=== PATIENT | male | born 1965 | race Caucasian/White ===

== ENCOUNTER 2021-03-31 15:42 | Outpatient (CLI) | payer OTHER, SELFPAY ==
[2021-03-31 20:31] LABS: Basophils Absolute Auto 0.2 K/mm3 (0.0-0.1); Basophils Percent Auto 1.5 % (0.2-1.2); Eosinophils Absolute Auto 1.6 K/mm3 (0-0.3); Eosinophils Percent Auto 14.5 % (0-4.4); Hematocrit 46.4 % (42.0-52.0); Immature Granulocyte Absolute 0.05 K/mm3 (0.00-0.031); Immature Granulocyte Percent A 0.4 % (0-0.5); Lymphocytes Absolute Auto 2.05 K/mm3 (0.9-3.2); Lymphocytes Percent Auto 18.2 % (18.3-44.2); Mean Corpuscular HGB Conc 34.5 g/dl (32-36); Mean Corpuscular Hemoglobin 35.2 pg (26-34); Mean Platelet Volume 10.1 fl (7.4-10.4); Monocytes Absolute Auto 1.2 K/mm3 (0.1-0.6); Neutrophils Absolute Auto 6.1 K/mm3 (1.3-6.7); Neutrophils Percent Auto 54.4 % (45.5-73.1); Platelet Count Result 414 k/mm3 (150-375); Red Blood Count 4.55 M/mm3 (4.6-6.20); Red Cell Distribution Width 12.5 % (11.5-14.5); White Blood Count 11.3 K/mm3 (4.5-10.0)
[2021-03-31 20:38] LABS: Alanine Aminotransferase 18 U/L (4-50); Albumin Level 4.4 g/dL (3.5-5.1); Alkaline Phosphatase 55 U/L (38-126); Anion Gap 8 mmol/L (8-16); Aspartate Amino Transferase 27 U/L (17-59); Bilirubin,Total 0.6 mg/dL (0.2-1.3); Blood Urea Nitrogen 18 mg/dL (9-20); Calcium 10.1 mg/dL (8.4-10.2); Carbon Dioxide 27 mmol/L (22-30); Chloride 101 mmol/L (98-107); Cholesterol 193 mg/dL (0-200); Estimated Glomerular Filt Rate > 60; Glucose 112 mg/dL (65-110); HDL Direct 89 mg/dL; Magnesium 1.7 mg/dL (1.6-2.3); Sodium 136 mmol/L (137-145); Triglycerides 172 mg/dL (<150)
[2021-03-31 20:49] LABS: LDL Cholesterol Direct 101 mg/dL
[2021-03-31 20:58] LABS: Vitamin D 25 Hydroxy 56.8 ng/mL
[2021-03-31 21:06] LABS: Prostate Specific Antigen 0.8 ng/mL (< OR = 4.0)
== END 2021-03-31 15:43 | disposition home or self-care (01) ==
PROVIDERS: PCP Family Medicine; Visit Provider Family Medicine
DX: Z12.5 Encounter for screening for malignant neoplasm of prostate (principal); L98.9 Disorder of the skin and subcutaneous tissue, unspecified; M54.2 Cervicalgia; Z00.00 Encounter for general adult medical examination without abnormal findings; G43.909 Migraine, unspecified, not intractable, without status migrainosus
CPT/HCPCS: 36415; 80053; 80061; 82306; 83735; 84153; 85025; G0103

== ENCOUNTER 2021-04-19 14:59 | Outpatient (CLI) | payer OTHER, SELFPAY ==
[2021-04-19 20:49] LABS: Hemoglobin A1C 5.1 % (<5.7)
== END 2021-04-19 15:00 | disposition home or self-care (01) ==
LOC: ANHBWCLAB 15:01
PROVIDERS: PCP Family Medicine; Visit Provider Family Medicine
DX: R73.09 Other abnormal glucose (principal)
CPT/HCPCS: 36415; 83036

== ENCOUNTER 2021-06-29 10:45 | Outpatient (CLI) | payer OTHER, SELFPAY ==
[2021-06-29 17:54] LABS: Basophils Percent Auto 0.1 % (0.2-1.2); Eosinophils Absolute Auto 0.6 K/mm3 (0-0.3); Eosinophils Percent Auto 5.8 % (0-4.4); Hematocrit 37.4 % (42.0-52.0); Hemoglobin 12.7 g/dL (14.0-18.0); Immature Granulocyte Absolute 0.13 K/mm3 (0.00-0.031); Immature Granulocyte Percent A 1.3 % (0-0.5); Lymphocytes Percent Auto 20.7 % (18.3-44.2); Mean Corpuscular Hemoglobin 34.7 pg (26-34); Mean Corpuscular Volume 102.2 fl (80-100); Mean Platelet Volume 9.7 fl (7.4-10.4); Monocytes Absolute Auto 1.3 K/mm3 (0.1-0.6); Monocytes Percent Auto 13.3 % (2.6-8.5); Neutrophils Absolute Auto 5.7 K/mm3 (1.3-6.7); Neutrophils Percent Auto 58.8 % (45.5-73.1); Platelet Count Result 444 k/mm3 (150-375); Red Blood Count 3.66 M/mm3 (4.6-6.20); Red Cell Distribution Width 12.3 % (11.5-14.5); White Blood Count 9.7 K/mm3 (4.5-10.0)
[2021-06-29 17:57] LABS: Add Urine Microscopic? YES; Appearance Urine Clear (Clear); Bilirubin Urine Negative (Negative); Blood Urine Negative (Negative); Color Urine Straw (Yellow); Glucose Urine UA Negative (Negative); Ketones Urine Negative (Negative); Leukocyte Esterase Ur Negative LEU/UL (NEGATIVE); Nitrate Urine Negative (Negative); Protein Urine Negative (Negative); RBC Urine 0-2 /hpf (0-2); Specific Grav Ur 1.006 (1.001-1.035); Urobilinogen Urine Negative mg/dL (<2.0); WBC Urine 0-3 /hpf (0-3)
== END 2021-06-29 10:46 | disposition home or self-care (01) ==
PROVIDERS: PCP Family Medicine; Visit Provider Family Medicine
DX: N30.90 Cystitis, unspecified without hematuria (principal)
CPT/HCPCS: 36415; 81001; 85025; 87086; 87491; 87591

== ENCOUNTER 2021-09-06 11:42 | Outpatient (CLI) | payer OTHER, SELFPAY ==
[2021-09-06 19:29] LABS: Add Urine Microscopic? NO; Appearance Urine Clear (Clear); Bilirubin Urine Negative (Negative); Blood Urine Negative (Negative); Color Urine Straw (Yellow); Glucose Urine UA Negative (Negative); Ketones Urine Negative (Negative); Leukocyte Esterase Ur Negative LEU/UL (NEGATIVE); Nitrate Urine Negative (Negative); Protein Urine Negative (Negative); Specific Grav Ur 1.006 (1.001-1.035); Urobilinogen Urine Negative mg/dL (<2.0)
[2021-09-06 19:33] LABS: Basophils Absolute Auto 0.1 K/mm3 (0.0-0.1); Basophils Percent Auto 1.5 % (0.2-1.2); Eosinophils Absolute Auto 0.3 K/mm3 (0-0.3); Eosinophils Percent Auto 4.1 % (0-4.4); Hematocrit 41.2 % (42.0-52.0); Hemoglobin 13.9 g/dL (14.0-18.0); Immature Granulocyte Absolute 0.01 K/mm3 (0.00-0.031); Immature Granulocyte Percent A 0.1 % (0-0.5); Lymphocytes Absolute Auto 2.03 K/mm3 (0.9-3.2); Lymphocytes Percent Auto 27.5 % (18.3-44.2); Mean Corpuscular HGB Conc 33.7 g/dl (32-36); Mean Corpuscular Hemoglobin 34.9 pg (26-34); Mean Corpuscular Volume 103.5 fl (80-100); Mean Platelet Volume 9.8 fl (7.4-10.4); Monocytes Absolute Auto 0.7 K/mm3 (0.1-0.6); Monocytes Percent Auto 8.9 % (2.6-8.5); Neutrophils Absolute Auto 4.3 K/mm3 (1.3-6.7); Neutrophils Percent Auto 57.9 % (45.5-73.1); Platelet Count Result 378 k/mm3 (150-375); Red Blood Count 3.98 M/mm3 (4.6-6.20); Red Cell Distribution Width 12.5 % (11.5-14.5); White Blood Count 7.4 K/mm3 (4.5-10.0)
[2021-09-06 20:47] LABS: Folic Acid > 20.0 ng/mL (2.76->20)
[2021-09-07 08:25] LABS: Rapid Plasma Reagin Non-Reactive (NonReactive)
== END 2021-09-06 11:43 | disposition home or self-care (01) ==
PROVIDERS: PCP Family Medicine; Visit Provider Family Medicine
DX: D64.9 Anemia, unspecified (principal); R39.9 Unspecified symptoms and signs involving the genitourinary system; R10.30 Lower abdominal pain, unspecified
CPT/HCPCS: 36415; 81003; 82607; 82746; 85025; 86592; 87086; 87491; 87591

== ENCOUNTER 2021-11-02 14:08 | Outpatient (CLI) | payer OTHER, SELFPAY ==
--- NOTE | ~2021-11-02 | CT_ITS ---
EXAMINATION: CT abdomen pelvis wo con DATE: 11/02/2021 14:32 INDICATION: Pelvic and perineal pain TECHNIQUE: Computed tomography (CT) of the abdomen and pelvis was performed without intravenous contr ast. The dose-length product (DLP) was 192.69 mGy-cm. Automated exposure control and iterative recons truction technique were employed. COMPARISON: None FINDINGS: The lung bases are clear. The heart size is normal. The liver, spleen, pancreas, gallbladde r, and adrenal glands are normal. There is a 2 mm nonobstructing stone of the left kidney upper pole. The right kidney is unremarkable. There is calcified atherosclerosis of the aorta and many of the ot her arteries. No pathologically enlarged abdominal or pelvic lymph nodes are identified. Colonic dive rticulosis is present without evidence of diverticulitis. There is no free intraperitoneal gas or sara dence of bowel obstruction. There is mild lumbar spondylosis at L5-S1. Calcifications are noted in th e prostate. IMPRESSION: 1. No CT correlate for the patient's symptoms. 2. Diverticulosis without evidence of diverticulitis. Reviewed, dictated and finalized at location A.
== END 2021-11-02 14:09 | disposition home or self-care (01) ==
PROVIDERS: PCP Family Medicine; Visit Provider Family Medicine
DX: R10.2 Pelvic and perineal pain (principal); R19.00 Intra-abdominal and pelvic swelling, mass and lump, unspecified site; R10.30 Lower abdominal pain, unspecified; K52.9 Noninfective gastroenteritis and colitis, unspecified; R22.9 Localized swelling, mass and lump, unspecified; I70.0 Atherosclerosis of aorta; N20.0 Calculus of kidney; K57.30 Diverticulosis of large intestine without perforation or abscess without bleeding; M47.817 Spondylosis without myelopathy or radiculopathy, lumbosacral region
CPT/HCPCS: 74176

== ENCOUNTER 2022-03-30 15:28 | Outpatient (CLI) | payer OTHER, SELFPAY ==
[2022-03-30 19:50] LABS: Hematocrit 38.9 % (42.0-52.0); Hemoglobin 13.2 g/dL (14.0-18.0); Mean Corpuscular HGB Conc 33.9 g/dl (32-36); Mean Corpuscular Hemoglobin 35.5 pg (26-34); Mean Corpuscular Volume 104.6 fl (80-100); Mean Platelet Volume 9.8 fl (7.4-10.4); Platelet Count Result 391 k/mm3 (150-375); Red Blood Count 3.72 M/mm3 (4.6-6.20); Red Cell Distribution Width 12.3 % (11.5-14.5); White Blood Count 7.5 K/mm3 (4.5-10.0)
[2022-03-30 20:31] LABS: Alanine Aminotransferase 21 U/L (6-50); Albumin Level 4.7 g/dL (3.5-5.1); Alkaline Phosphatase 56 U/L (38-126); Anion Gap 8 mmol/L (8-16); Aspartate Amino Transferase 55 U/L (17-59); Bilirubin,Total 0.5 mg/dL (0.2-1.3); Blood Urea Nitrogen 12 mg/dL (9-20); Calcium 9.8 mg/dL (8.4-10.2); Carbon Dioxide 29 mmol/L (22-30); Chloride 100 mmol/L (98-107); Estimated Glomerular Filt Rate > 60; Glucose 95 mg/dL (65-110); Potassium 4.3 mmol/L (3.4-5.0); Sodium 137 mmol/L (137-145)
[2022-03-30 20:49] LABS: Prostate Specific Antigen 0.8 ng/mL (< OR = 4.0)
== END 2022-03-30 15:29 | disposition home or self-care (01) ==
LOC: ANHBWCLAB 15:29
PROVIDERS: PCP Family Medicine; Visit Provider Family Medicine
DX: Z00.00 Encounter for general adult medical examination without abnormal findings (principal); Z12.5 Encounter for screening for malignant neoplasm of prostate
CPT/HCPCS: 36415; 80053; 84153; 85027; G0103

== ENCOUNTER 2022-11-01 09:02 | Outpatient (CLI) | payer OTHER, SELFPAY ==
[2022-11-01 18:28] LABS: Basophils Absolute Auto 0.1 K/mm3 (0.0-0.1); Basophils Percent Auto 1.2 % (0.2-1.2); Eosinophils Absolute Auto 0.6 K/mm3 (0-0.3); Eosinophils Percent Auto 6.6 % (0-4.4); Hematocrit 37.7 % (42.0-52.0); Hemoglobin 12.5 g/dL (14.0-18.0); Immature Granulocyte Absolute 0.03 K/mm3 (0.00-0.031); Immature Granulocyte Percent A 0.3 % (0-0.5); Lymphocytes Absolute Auto 1.72 K/mm3 (0.9-3.2); Lymphocytes Percent Auto 19.2 % (18.3-44.2); Mean Corpuscular HGB Conc 33.2 g/dl (32-36); Mean Corpuscular Hemoglobin 34.5 pg (26-34); Mean Corpuscular Volume 104.1 fl (80-100); Mean Platelet Volume 10.5 fl (7.4-10.4); Monocytes Percent Auto 10.6 % (2.6-8.5); Neutrophils Absolute Auto 5.6 K/mm3 (1.3-6.7); Neutrophils Percent Auto 62.1 % (45.5-73.1); Platelet Count Result 337 k/mm3 (150-375); Red Blood Count 3.62 M/mm3 (4.6-6.20); Red Cell Distribution Width 12.3 % (11.5-14.5)
[2022-11-01 19:34] LABS: Iron 85 ug/dL (49-181)
[2022-11-01 19:44] LABS: Percent Iron Saturation 27 % (20-50)
[2022-11-01 20:12] LABS: Alanine Aminotransferase 26 U/L (6-50); Albumin Level 4.3 g/dL (3.5-5.1); Alkaline Phosphatase 68 U/L (38-126); Anion Gap 3 mmol/L (8-16); Aspartate Amino Transferase 76 U/L (17-59); Bilirubin,Total 0.6 mg/dL (0.2-1.3); Blood Urea Nitrogen 11 mg/dL (9-20); Calcium 9.5 mg/dL (8.4-10.2); Carbon Dioxide 32 mmol/L (22-30); Chloride 101 mmol/L (98-107); Estimated Glomerular Filt Rate > 60; Glucose 90 mg/dL (65-110); Sodium 136 mmol/L (137-145)
== END 2022-11-01 09:03 | disposition home or self-care (01) ==
LOC: ANHBWCLAB 09:03
PROVIDERS: PCP Family Medicine; Visit Provider Family Medicine
DX: D64.9 Anemia, unspecified (principal); G43.909 Migraine, unspecified, not intractable, without status migrainosus; M05.20 Rheumatoid vasculitis with rheumatoid arthritis of unspecified site; M54.2 Cervicalgia; M54.6 Pain in thoracic spine; R10.30 Lower abdominal pain, unspecified; R19.00 Intra-abdominal and pelvic swelling, mass and lump, unspecified site
CPT/HCPCS: 36415; 80053; 82728; 83540; 83550; 85025

== ENCOUNTER 2023-11-06 11:47 | Outpatient (CLI) | payer OTHER, SELFPAY ==
[2023-11-06 20:06] LABS: Anion Gap 4 mmol/L (4-12); Blood Urea Nitrogen 7 mg/dL (9-20); Carbon Dioxide 28 mmol/L (22-30); Chloride 101 mmol/L (98-107); Estimated Glomerular Filt Rate > 60; Glucose 103 mg/dL (65-110); Sodium 133 mmol/L (137-145)
== END 2023-11-06 11:48 | disposition home or self-care (01) ==
PROVIDERS: PCP Family Medicine; Visit Provider Family Medicine
DX: E87.6 Hypokalemia (principal)
CPT/HCPCS: 36415; 80048

== ENCOUNTER 2024-02-21 09:16 | Outpatient (CLI) | payer OTHER, SELFPAY ==
[2024-02-21 19:22] LABS: Hematocrit 44.6 % (42.0-52.0); Hemoglobin 14.4 g/dL (14.0-18.0); Mean Corpuscular HGB Conc 32.3 g/dl (32-36); Mean Corpuscular Hemoglobin 33.6 pg (26-34); Mean Platelet Volume 9.8 fl (7.4-10.4); Platelet Count Result 468 k/mm3 (150-375); Red Blood Count 4.29 M/mm3 (4.6-6.20); Red Cell Distribution Width 13.2 % (11.5-14.5); White Blood Count 11.7 K/mm3 (4.5-10.0)
[2024-02-21 19:44] LABS: Alanine Aminotransferase 18 U/L (6-50); Albumin Level 4.1 g/dL (3.5-5.1); Alkaline Phosphatase 54 U/L (38-126); Anion Gap 13 mmol/L (4-12); Aspartate Amino Transferase 90 U/L (17-59); Bilirubin,Total 0.3 mg/dL (0.2-1.3); Blood Urea Nitrogen 5 mg/dL (9-20); Calcium 9.5 mg/dL (8.4-10.2); Carbon Dioxide 24 mmol/L (22-30); Chloride 95 mmol/L (98-107); Estimated Glomerular Filt Rate > 60; Glucose 179 mg/dL (65-110); Sodium 132 mmol/L (137-145)
[2024-02-21 20:15] LABS: Prostate Specific Antigen 0.6 ng/mL (< OR = 4.0)
[2024-03-03 14:48] LABS: Pancreatic Elastase, Stool >500 mcg/g
== END 2024-02-21 09:17 | disposition home or self-care (01) ==
PROVIDERS: PCP Family Medicine; Visit Provider Family Medicine
DX: R19.7 Diarrhea, unspecified (principal); K50.90 Crohn's disease, unspecified, without complications; M54.2 Cervicalgia; M54.6 Pain in thoracic spine
CPT/HCPCS: 36415; 80053; 82653; 84153; 85027; 87045; 87427; 87449; 87493; 89055; G0103

== ENCOUNTER 2024-02-26 12:59 | Outpatient (CLI) | payer OTHER, SELFPAY | END 2024-02-26 13:00 | disposition home or self-care (01) | LOC: ANHBWCLAB 13:00 | PROVIDERS: PCP Family Medicine; Visit Provider Family Medicine | DX: R73.9 Hyperglycemia, unspecified (principal) | CPT/HCPCS: 36415; 83036 ==

== ENCOUNTER 2024-03-10 14:10 | Outpatient (CLI) | payer OTHER, SELFPAY ==
[2024-03-10 18:52] LABS: Add Urine Microscopic? NO; Appearance Urine Clear (Clear); Bilirubin Urine Negative (Negative); Blood Urine Negative (Negative); Color Urine Yellow (Yellow); Glucose Urine UA Negative (Negative); Ketones Urine Negative (Negative); Leukocyte Esterase Ur Negative LEU/UL (Negative); Nitrate Urine Negative (Negative); Protein Urine Negative (Negative); Specific Grav Ur 1.012 (1.001-1.035); Urobilinogen Urine 0.2 mg/dL (<2.0); pH Urine 6.5 (5.0-9.0)
== END 2024-03-10 14:11 | disposition home or self-care (01) ==
LOC: ANHBWCLAB 14:11
PROVIDERS: PCP Family Medicine; Visit Provider Family Medicine
DX: R30.0 Dysuria (principal)
CPT/HCPCS: 81003; 87086; 87088

== ENCOUNTER 2024-09-18 14:44 | Outpatient (CLI) | payer OTHER, SELFPAY ==
--- OUTSIDE RECORDS SUMMARY | 2024-09-18 15:12 | XMS_ITS | Continuity of Care Document ---
Author Organization [facility] Address [address] [facility] [address] [place] [address] Phone Care Team Providers Care Loan Documentation Specialist Name Role Phone Rafael Jacome Unavailable Unavailable [...] Copied on Encounter Office/outpati ent Visit, Est [facility], [address] [place] [address] [address], [place], [place], [address], [place] tel:[phone] [address] [facility] No Information 0-200 9 Naa Rafael. [address] [facility] [address], [place], [address], [place]. tel:[phone] Referring Provider: Alison Pittman, [address] [facility] Eye [facility], [place], [address]. [facility], [address] [place] [address] [address], [place], [place], [address], [place] tel:[phone] [facility] No Information 4-200 9 Kryimi Rafael. [address] [place] [address], [facility], [place]. tel:[phone] Referring Provider: Rafael Dianamanoj , [address] [place] [address], [place], [place], [facility]. tel:[phone] Office/outpati ent Visit, [facility] Eye [facility], [address] [place] [address] [address], [place], [place], [address], [place] tel:[phone] [facility] No Information 1-200 8 Krkaynasmanoj Calerohil. [address] [place] [address], [facility], [place]. tel:[phone] Referring Provider: Hemal DiazB N [address] [place] [address], [place], [address]. [facility] Eye [facility], [address] [place] [address] [address], [place], [place], [address], [place] tel:[phone] [facility] No Information October-0 8-200 8 Naa Calerohil. [address] [place] [address], [facility], [place]. tel:[phone] Referring Provider: Marshall Morris, [address] [facility], [place], [address]. tel:[phone] Office/outpati ent Visit, [facility] Eye [facility], [address] [place] [address] [address], [place], [place], [address], [place] tel:[phone] [facility] No Information Apr-0 2-200 7 Mio Olivares. [address] [facility], [facility] [place], [address], [place]. tel:[phone] Referring Provider: Alison Pittman [address] [place] [address] Eye [facility], [place], [address]. Office/outpati ent Visit, Est [facility], [address], [place], [place], [address], [place] tel:-[phone] [facility] No Information 0 1-200 7 Mio Olivares. [address] [facility], [address], [place], [place], [address], [place]. tel:[phone] Referring Provider: Alison Pittman, [address] [place] [address] Eye [facility], [place], [address]. [facility], [address], [place], [place], [address], [place] tel:-[phone] [facility] No Information 0 -200 7 Robbi Cordoba. [address] [place], [place] [address]ate [address] , [address], [place], [place], [facility], [place]. tel:[phone] Referring Provider: Adalid Morris, [facility] [address], [place], [facility]. tel:[phone] [facility], [address], [place], [place], [address], [place] tel:[phone] [facility] No Information 1 2-200 7 Robbi Cordoba. [facility] , [address], [place], [address], [place]. tel:[phone] Referring Provider: Adalid Morris, [facility] [address], [place], [address]. tel:[phone] Office Consultation [facility], [address], [place], [place], [address], [place] tel:[phone] [facility] No Information 1-200 7 Robbi Cordoba. [facility] , [address], [place], [address], [place]. tel:[phone] Referring Provider: Alison Pittman, [address] [place] [address] [place], [address]. 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
--- OUTSIDE RECORDS SUMMARY | 2024-09-18 15:12 | XMS_ITS | Encounter Summary ---
Author Organization [facility] Address [address] [place] [address] Phone Care Team Providers Care Accounting Machine Servicer Name Role Phone Phan Gilmore MD Primary Care Provider Elijah Humphrey MD Primary Care Provider Karan Quezada MD Unavailable Mariajose Gandhi MD Unavailable [phone] Jose Cantrell MD Unavailable [phone] Reason for Visit * Reason Comments Medication Refill Encounter Details Date Type Department Care Team (Late st Contact Info) Description 10/04/2020 Refill [facility] [address] [place] [address] Phan Gilmore MD [address] [address] Medication Refill Social History Tobacco Use Types Packs/Day Years Used Date Smoking Tobacco: Never Assessed PHQ-2 Answer Date Recorded Total Score - Questions 1-9 0 04/0 03/2021 Sex and Gender Information Value Date Recorded Sex Assigned at Not on file Legal Sex Male 10:29 PM CDT Gender Identity Not on file Sexual Orientation Not on file documented as of this encounter Plan of Treatment Not on file documented as of this encounter Visit Diagnoses Not on filedocumented in this encounter Additional Health Concerns Infection Onset Date Last Indicated Resolved Time C. difficile Rule-Out 05/31/2021 05/31/20212020 12:16 AM PERSONAL LINES ACCOUNT EXECUTIVE C. difficile Rule-Out 12/08/2021 12/09/20212021 12:16 AM CDT documented as of this encounter Care Teams Accounting Machine Servicer Relationship Specialty Start Date End Date Phan Gilmore MD [address] [place] [address] PCP - General Internal Medicine 09/07/19 05/30/21 Elijah Humphrey MD [address] [place], [place] [address] [address] PCP - General Family Medicine 05/31/21 Karan Quezada MD #[address] [address] Consulting Physician Colon and Rectal Surgery 11/01/21 Mariajose Gandhi MD [address] [place] [address] Consulting Physician Gastroenterology 04/13/22 Jose Cantrell MD [address] [place] [address] Consulting Physician Neurology 05/20/24 documented as of this encounter
--- OUTSIDE RECORDS SUMMARY | 2024-09-18 15:12 | XMS_ITS | Encounter Summary ---
Author Organization [facility] Address [address] [place] [address] Phone Care Team Providers Care Senior Cost Accountant Name Role Phone Elijah Humphrey MD Primary Care Provider [phone] Karan Quezada MD Unavailable Mariajose Gandhi MD Unavailable Jose Cantrell MD Unavailable [phone] Encounter Details Date Type Department Care Team (Latest Contact Info) Description 06/03/2024 [facility] [address] [place] [address] Regino Garcia MD [address] [facility] [address] [place] [address] Collagenous colitis (Primary Dx) Social History Tobacco Use Types Packs/Day Years Used Date Smoking Tobacco: Former Cigarettes 1.5 28 1 08/17/1981 - 07/02/2009 Smokeless Tobacco: Never Alcohol Use Standard Drinks/Week Comments Yes 0 (1 standard drink = 0.6 oz pur e alcohol) 1-2 beers a day PHQ-2 Answer Date Recorded Total Score - Questions 1-9 0 04/0 03/2021 Sexually Active Control Partners Comments Not Currently Female Sex and Gender Information Value Date Recorded Sex Assigned at Not on file Legal Sex Male 10:29 PM CDT Gender Identity Not on file Sexual Orientation Not on file documented as of this encounter Plan of Treatment Not on file documented as of this encounter Results * (ABNORMAL) CALPROTECTIN, FECES (06/03/2024 1:54 PM BUSHER HELPER) CALPROTECTIN, FECES 79.3(H) <=49.0 mcg/g 06/04/2024 2:24 PM BUSHER HELPER [facility] Comment: <50 mcg/g Normal 50-120 mcg/g Borderline >120 mcg/g Abnormal Stool Non-Phlebotomy Collection / Unknown 06/03/2024 1:54 PM BUSHER HELPER 06/03/2024 1:57 PM BUSHER HELPER us Regino Garcia MD IMMUNOLOGY ORDERABLES Final Result [facility] [address] [facility] [place] [address], documented in this encounter Visit Diagnoses Diagnosis Collagenous colitis- Primary Other and unspecified noninfectious gastroenteritis and colitis documented in this encounter Additional Health Concerns Assessment Noted Time PHQ-9 Depression Total Score: 0 10/09/19 21 10:00 AM CDT documented as of this encounter Care Teams Senior Cost Accountant Relationship Specialty Start Date End Date Elijah Humphrey MD [address] [place] [address] PCP - General Family Medicine 05/31/21 Karan Quezada MD [address] [address] Consulting Physician Colon and Rectal Surgery 11/01/21 Mariajose Gandhi MD [address] [place] [address] Consulting Physician Gastroenterology 04/13/22 Jose Cantrell MD [address] [place] [address] Consulting Physician Neurology 05/20/24 documented as of this encounter
--- OUTSIDE RECORDS SUMMARY | 2024-09-18 15:12 | XMS_ITS | Clinical Summary ---
Author Organization [facility] [place] Address [address] [place] [address] Phone Care Team Providers Care Display Fabricator Name Role Phone Elijah Humphrey MD Primary Care Provider [phone] Karan Quezada MD Unavailable Mariajose Gandhi MD Unavailable Jose Cantrell MD Unavailable [phone] Allergies Active Allergy Reactions Criticality Noted Date Comments Fluvoxamine Other (see Comments) 05/12/2024 Shaking Sulfa Antibiotics Hives As a kid Medications Multiple Vitamins-Mineral s (CENTRUM PO) Take by mouth daily. HOLD FOR 5 DAYS PRIOR TO PROCEDURE Active Aspirin-Acetamin ophen-Caffeine (EXCEDRIN PO) Take by mouth as needed. Active valACYclovir (VALTREX) 1 GM Tablet Take 1/2 (one-half) tablet by mouth twice daily 30 Tablet 1 Active esomeprazole (NexIUM) 20 MG CAPSULE DELAYED RELEASE Take 20 mg by mouth nightly. Active Probiotic Product (PRO-BIOTIC BLEND PO) Take by mouth daily. Active budesonide (ENTOCORT EC) [address] Particles Take 1 Capsule by mouth every morning. 90 Capsule 1 2 Active ustekinumab (Stelara) 130 MG/26ML SolutionIndicati ons:Crohn's disease of colon with other complication (HCC) Patient weight is 54.6 kg, stelara IV 260 mg IV x 1 Pre med: tylenol 650 mg po x 1, Benadryl 25 mg po x 1 Post med/rescue med: Benadryl 50 mg po x 1, solumedrol 125 mg IV x 1 52 mL 3 Active Additional Information Patient not taking.Reported on 12/14/2022 oxyCODONE-acetam inophen (PERCOCET) 5-325 MG Tablet Take 1 Tablet by mouth every 4 hours as needed. Active famotidine (PEPCID) 20 MG Tablet Take 20 mg by mouth 2 times daily. Active pregabalin (LYRICA) 75 MG CapsuleIndicatio ns:Chronic migraine with aura without status migrainosus, not intractable Take 1 Capsule by mouth 3 times daily. 90 Capsule 3 5 Active topiramate (TOPAMAX) 25 MG Tablet Take 1 Tablet by mouth 2 times daily. 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 Granulomatous colitis Resolved Problems Problem Noted Date Diagnosed Date Resolved Date Lower abdominal pain 06/01/2021 021 Enteritis 05/31/2021 06/02/2021 UTI (urinary tract infection) 05/31/2021 06/02/2021 Encounters Date Type Department Care Team Description 08/14/2024 2:15 PM FOOD CHECKERS AND CASHIERS SUPERVISOR Office Visit [facility] [address] [place] [address] Jose Cantrell MD Chronic migraine with aura without status migrainosus, not intractable (Primary Dx); Myelopathy (HCC) Discharge Disposition: Discharged to home or Selfcare 08/12/2024 Travel 06/20/2024 1:14 PM FOOD CHECKERS AND CASHIERS SUPERVISOR - 06/20/2024 11:59 PM FOOD CHECKERS AND CASHIERS SUPERVISOR Hospital Encounter [facility] MRI [address] [place] [address] Jose Cantrell MD Discharge Disposition: Discharged to home or Selfcare 06/20/2024 Travel from Last 3 Months Immunizations Immunization Administration Dates Next Due Covid-19 Vaccine, Vector-nr, Rs-ad26, Pf, 0.5 Ml (Magnasense/J&J) 09/03/2020 DT Vaccine 04/01/2013 Influenza Vaccine greater than 3 yrs 04/13/2019 Influenza Vaccine, MDCK,quadrivalent, pres free 04/13/2019 Influenza Vaccine, Quadrivalent, PF 04/09/2021,1 07/08/2017 Zoster Vaccine Recombinant 04/28/2021 Zoster Vaccine, live 10/31/2021 Family History Medical History Relation Name Comments Heart Attack Father No Known Problems Maternal Grandfather Hypertension Maternal Grandmother Coronary Artery Disease Mother No Known Problems Paternal Grandfather No Known Problems Paternal Grandmother No Known Problems Sister 1 Stomach Cancer Sister 2 Heart Disease Sister 3 Hypertension Sister 3 No Known Problems Son Relation Name Status Comments Father Maternal Grandfather Maternal Grandmother Mother Paternal Grandfather Paternal Grandmother Sister 1 Alive Sister 2 Sister 3 Son Alive Social History Tobacco Use Types Packs/Day Years Used Date Smoking Tobacco: Former Cigarettes 1.5 28 1 08/17/1981 - 07/02/2009 Smokeless Tobacco: Never Tobacco Cessation:Counseling Given: Not Answered Alcohol Use Standard Drinks/Week Comments Yes 0 (1 standard drink = 0.6 oz pur e alcohol) 1-2 beers a day PHQ-2 Answer Date Recorded Total Score - Questions 1-9 0 0 03/2021 Sexually Active Control Partners Comments Not Currently Female Sex and Gender Information Value Date Recorded Sex Assigned at Not on file Legal Sex Male 10:29 PM CDT Gender Identity Not on file Sexual Orientation Not on file Last Filed Vital Signs Vital Sign Reading Time Taken Comments Blood Pressure 120/70 08/14/2024 2:22 PM FOOD CHECKERS AND CASHIERS SUPERVISOR Pulse 101 08/14/2024 2:22 PM FOOD CHECKERS AND CASHIERS SUPERVISOR Temperature 36.6 C (97.8 F) 08/14/2024 2:22 PM FOOD CHECKERS AND CASHIERS SUPERVISOR Respiratory Rate 16 08/14/2024 2:22 PM FOOD CHECKERS AND CASHIERS SUPERVISOR Oxygen Saturation 100% 08/14/2024 2:22 PM FOOD CHECKERS AND CASHIERS SUPERVISOR Inhaled Oxygen Concentration - - Weight 55.1 kg (121 lb 8 oz) 08/14/2024 2:22 PM FOOD CHECKERS AND CASHIERS SUPERVISOR Height 175.3 cm (5' 9 ) 08/14/2024 2:22 PM FOOD CHECKERS AND CASHIERS SUPERVISOR Body Mass Index 17.94 08/14/2024 2:22 PM FOOD CHECKERS AND CASHIERS SUPERVISOR Plan of Treatment Health Maintenance Due Date Last Done Comments Vannesa 12/12/2013 Immunochemical Fecal Occult Blood 12/12/2013 Pneumococcal Immunization (50+ years) (1 of 1 - PCV) 12/12/2013 Zoster Immunization (2 of 2) 12/26/2021 10/31/2021, 04/28/2021 Colonoscopy 05/05/2025 05/05/2024, 110 10/2023, 03/03/2022, Additional history exists Colorectal Cancer Screening 05/05/2025 Respiratory Syncytial Virus (RSV) Immunization (Adult) (1 - 1-dose 75+ series) 12/12/2038 05/05/2024, 0 10/2023, 03/03/2022, Additional history exists DTaP/Tdap/Td Immunization Discontinued 04/01/2013 Hepatitis C Virus (HCV) Screening Completed 07/21/2022 PSA Discussion Completed 06/12/2023 Influenza Immunization Completed 4, 04/12/2023, 06/03/2022, Additional history exists SARS-COV-2 Immunization Completed 03/17/20 24, 04/19/2023, 09/03/2020 Hepatitis B Immunization Aged Out No longer eligible based on patient's age to complete this topic Meningococcal Immunization (ACWY) Aged Out No longer eligible based on patient's age to complete this topic Rotavirus Immunization Aged Out No lo nger eligible based on patient's age to complete this topic Procedures Procedure Name Priority Date/Time Associated Diagnosis Comments MRI C-SPINE W/O CONTRAST Routine 06/20/2024 2:35 PM FOOD CHECKERS AND CASHIERS SUPERVISOR Myelopathy (HCC) PSA SCREEN Routine 06/12/2023 11:59 AM FOOD CHECKERS AND CASHIERS SUPERVISOR Crohn's disease with complication, unspecified gastrointestinal tract location (HCC) Pain in thoracic spine Cervicalgia Shortness of breath Post-COVID syndrome Cachexia (HCC) HEPATITIS C ANTIBODY Routine 07/21/2022 2:31 PM FOOD CHECKERS AND CASHIERS SUPERVISOR Crohn's disease without complication, unspecified gastrointestinal tract location (HCC) Chronic abdominal pain Weight loss from Last 3 Months or Most Recently Relevant to Health Maintenance Results * MRI C-SPINE W/O CONTRAST (06/20/2024 2:35 PM FOOD CHECKERS AND CASHIERS SUPERVISOR) Anatomical Region Laterality Modality Spine, C-spine N/A Magnetic Resonan ce 06/20/2024 3:03 PM FOOD CHECKERS AND CASHIERS SUPERVISOR Impressions 06/20/2024 3:05 PM FOOD CHECKERS AND CASHIERS SUPERVISOR IMPRESSION: Multilevel degenerative changes of the cervical spine, as described above, with up to [id number] spinal canal stenosis and severe left neural foraminal stenosis. Narrative 06/20/2024 3:05 PM FOOD CHECKERS AND CASHIERS SUPERVISOR EXAM DESCRIPTION: MRI C-SPINE W/O CONTRAST REASON FOR STUDY: C/o posterior neck pain and headache x one year TECHNIQUE: Sagittal and Axial imaging includes T1, T2, STIR and gradient echo sequences. COMPARISON: No prior studies are available for comparison at time of this dictation. FINDINGS: ALIGNMENT: Trace retrolisthesis of C4 over C5, C5 over C6 VERTEBRAE: Vertebral body height well-maintained. Normal appearing marrow. DISCS: Moderate disc space height loss at C5-C6. There is mild height loss of the other levels. No annular fissure. Multilevel disc desiccation. CORD: Normal in size and signal intensity. INDIVIDUAL LEVELS: C2-C3: Posterior disc osteophyte complex. There is mild facet arthropathy. There is no uncovertebral joint disease. There is no neuroforaminal stenosis. There is no spinal canal stenosis. C3-C4: Posterior disc osteophyte complex eccentric to the left. There is moderate left and mild right facet arthropathy. There is severe left and no right uncovertebral joint disease. There is severe left and no right neuroforaminal stenosis. There is no spinal canal stenosis. C4-C5: Posterior disc osteophyte complex. There is moderate facet arthropathy. There is moderate uncovertebral joint disease. There is moderate bilateral neuroforaminal stenosis. There is mild spinal canal stenosis. C5-C6: Posterior disc osteophyte complex. There is moderate facet arthropathy. There is moderate uncovertebral joint disease. There is moderate bilateral neuroforaminal stenosis. There is [id number] spinal canal stenosis. C6-C7: Posterior disc osteophyte complex with superimposed left subarticular disc protrusion. There is moderate facet arthropathy. There is mild bilateral uncovertebral joint disease. There is severe left and mild right neuroforaminal stenosis. There is mild to moderate spinal canal stenosis. C7-T1: The disc is normal in configuration. There is no facet arthropathy. There is no uncovertebral joint disease. There is no neuroforaminal stenosis. There is no spinal canal stenosis. BASE OF BRAIN: No significant finding. UPPER THORACIC: Incompletely imaged. No significant spinal stenosis or foraminal stenosis. OTHER: No other significant finding. THIS IS AN ELECTRONICALLY VERIFIED FINAL REPORT 06/20/2024 3:03 PM - Electronically signed by Colin Hernandez M.D. MM: MM Report ID: [id number] Reading Location: [id number] Procedure Note Colin Hernandez MD - 06/20/2024 EXAM DESCRIPTION: MRI C-SPINE W/O CONTRAST REASON FOR STUDY: C/o posterior neck pain and headache x one year TECHNIQUE: Sagittal and Axial imaging includes T1, T2, STIR and gradient echo sequences. COMPARISON: No prior studies are available for comparison at time of this dictation. FINDINGS: ALIGNMENT: Trace retrolisthesis of C4 over C5, C5 over C6 VERTEBRAE: Vertebral body height well-maintained. Normal appearing marrow. DISCS: Moderate disc space height loss at C5-C6. There is mild height loss of the other levels. No annular fissure. Multilevel disc desiccation. CORD: Normal in size and signal intensity. INDIVIDUAL LEVELS: C2-C3: Posterior disc osteophyte complex. There is mild facet arthropathy. There is no uncovertebral joint disease. There is no neuroforaminal stenosis. There is no spinal canal stenosis. C3-C4: Posterior disc osteophyte complex eccentric to the left. There is moderate left and mild right facet arthropathy. There is severe left and no right uncovertebral joint disease. There is severe left and no right neuroforaminal stenosis. There is no spinal canal stenosis. C4-C5: Posterior disc osteophyte complex. There is moderate facet arthropathy. There is moderate uncovertebral joint disease. There is moderate bilateral neuroforaminal stenosis. There is mild spinal canal stenosis. C5-C6: Posterior disc osteophyte complex. There is moderate facet arthropathy. There is moderate uncovertebral joint disease. There is moderate bilateral neuroforaminal stenosis. There is [id number] spinal canal stenosis. C6-C7: Posterior disc osteophyte complex with superimposed left subarticular disc protrusion. There is moderate facet arthropathy. There is mild bilateral uncovertebral joint disease. There is severe left and mild right neuroforaminal stenosis. There is mild to moderate spinal canal stenosis. C7-T1: The disc is normal in configuration. There is no facet arthropathy. There is no uncovertebral joint disease. There is no neuroforaminal stenosis. There is no spinal canal stenosis. BASE OF BRAIN: No significant finding. UPPER THORACIC: Incompletely imaged. No significant spinal stenosis or foraminal stenosis. OTHER: No other significant finding. THIS IS AN ELECTRONICALLY VERIFIED FINAL REPORT 06/20/2024 3:03 PM - Electronically signed by Colin Hernandez M.D. MM: MM Report ID: [id number] Reading Location: [id number] IMPRESSION: Multilevel degenerative changes of the cervical spine, as described above, with up to [id number] spinal canal stenosis and severe left neural foraminal stenosis. us Jose Cantrell MD IMG MR ORDERABLES Final Resu lt * PSA SCREEN (06/12/2023 11:59 AM FOOD CHECKERS AND CASHIERS SUPERVISOR) PSA SCREEN, TOTAL 0.31 <4.00 ng/mL 06/12/2023 12:46 PM FOOD CHECKERS AND CASHIERS SUPERVISOR [facility] Blood Venipuncture / Unknown 06/12/2023 11:59 AM FOOD CHECKERS AND CASHIERS SUPERVISOR 06/12/2023 12:06 PM FOOD CHECKERS AND CASHIERS SUPERVISOR Narrative [facility] - 06/12/2023 12:46 PM FOOD CHECKERS AND CASHIERS SUPERVISOR The BaokimNI Total PSA assay is a Chemiluminescent Microparticle Immunoassay (CMIA) for the quantitative determination of total PSA (both free PSA and PSA complexed to [id number]) in human serum. Total PSA values obtained with different assay methods, including Duran PSA assays, cannot be used interchangeably. us Elijah Humphrey MD CHEMISTRY ORDERABLES Final Resu lt [facility] [address] [place] [address] * HEPATITIS C ANTIBODY (07/21/2022 2:31 PM FOOD CHECKERS AND CASHIERS SUPERVISOR) hepatitis C antibody 0.05 <1 S/CO [facility] ARCH [id number] 07/22/2022 12:37 AM FOOD CHECKERS AND CASHIERS SUPERVISOR [facility] Comment: Signal/Cutoff ratio < 0.79 is Nondetected Signal/Cutoff ratio 0.80-0.99 is Grayzone Signal/Cutoff ratio > 0.99 is Detected Supplemental assays are recommended if signal/cutoff ratio is >/=1.00. Signal/cutoff ratio result >/= 5.00 is 97% predictive of positivity for recombinant immunoblot assay (RIBA) and will be reported to the [place] Department of Public Health as required. Blood Venipuncture / Unknown 07/21/2022 2:31 PM FOOD CHECKERS AND CASHIERS SUPERVISOR 07/21/2022 3:32 PM FOOD CHECKERS AND CASHIERS SUPERVISOR us Mariajose Gandhi MD CHEMISTRY ORDERABLES Final Resu lt Performing Organization Address City/State/[facility] Co de Phone Number [facility] [address] [place] [address], from Last 3 Months or Most Recently Relevant to Health Maintenance Insurance [facility] Advance Directives * Full Code (Latest Code Status on File) Date Activated Date Inactivated Comments 05/31/2021 10:17 PM 06/02/2021 2:14 PM CPR-Full T reatment: FULL ARREST: Attempt Resuscitation/CPR wit intubation and mechanical ventilation. PRE-ARREST: Use entire range of life support measures to stabilize the patient. Care Teams Display Fabricator Relationship Specialty Start Date End Date Elijah Humphrey MD [address] [place] [id number] PCP - General Family Medicine 05/31/21 Karan Quezada MD [address] [address] Consulting Physician Colon and Rectal Surgery 11/01/21 Mariajose Gandhi MD [address] [place] [address] Consulting Physician Gastroenterology 04/13/22 Jose Cantrell MD [address] [place] [id number] Consulting Physician Neurology 05/20/24
--- OUTSIDE RECORDS SUMMARY | 2024-09-18 15:12 | XMS_ITS | Clinical Summary ---
Author Organization [facility] Address [address] [place] [address] Phone Care Team Providers Care General Car Supervisor Yard Name Role Phone Elijah Humphrey MD Primary Care Provider [phone] Allergies Active Allergy Reactions Criticality Noted Date Comments Eggshell Membrane Nausea and Vomiting Low 0 Fluvoxamine Rash Low 10/01/2023 Milk Nausea and Vomiting Low 12/12/1969 Sulfa (Sulfonamide Antibiotics) Hives High 04/01 As a kid Medications ALPRAZolam (XANAX) 0.5 mg tablet Take 0.5 mg by mouth 2 times daily as needed for Anxiety. 4 Active valACYclovir (VALTREX) 500 mg tablet 8 Active ondansetron (ZOFRAN ODT) 8 mg Tablet, Rapid Dissolve 4 Active esomeprazole (NexIUM) 20 mg Capsule, Delayed Release(E.C.) Take 20 mg by mouth daily at bedtime. 3 Active famotidine (PEPCID) 20 mg tablet 4 Active oxyCODONE-acetam inophen (PERCOCET) 5-325 mg tablet 3 Active lactobacillus rhamnosus, GG, (Culturelle) 10 billion cell Capsule 4 Active multivitamin (DAILY-CARMELA) tablet Take 1 Tablet by mouth daily. Active amoxicillin (AMOXIL) 500 mg capsule Take 500 mg by mouth 2 times daily. Active budesonide (PULMICORT RESPULE) 0.5 mg/2 mL Suspension for Nebulization Mix 2 vials with 6 splenda packets and swallow once daily 120 mL 3 4 Active hyoscyamine 0.[address] 1 Tablet (0.125 mg) under tongue every 6 hours as needed for Spasm. 120 Tablet 4 Active fluconazole (DIFLUCAN) 200 mg tablet Take 2 tablets (400 mg) on day 1, then 1 tablet (200 mg) daily for an additional 13 days 15 Tablet 1 4 Active dupilumab (Dupixent Pen) 300 mg/2 mL Pen InjectorIndicati ons:Eosinophilic esophagitis Inject 2 mL (300 mg) by subcutaneous injection every 7 days. 8 mL 5 4 Active budesonide (ENTOCORT EC) 3 mg Enteric Coated 24 hour capsule Take 2 Capsules (6 mg) by mouth daily. 60 Capsule 3 4 Active Active Problems No known active problems Encounters Date Type Department Care Team Description 06/26/2024 Orders Only [facility] Gastroenterology [facility] [address] [address] Regino Garcia MD from Last 3 Months Family History Medical History Relation Name Comments Cancer Sister stomach Relation Name Status Comments Sister Social History Tobacco Use Types Packs/Day Years Used Date Smoking Tobacco: Former Cigarettes Passive Smoke Exposure: Never Smokeless Tobacco: Never Tobacco Cessation:Counseling Given: Not Answered Comments:Quit . Smoked socially in college. Alcohol Use Standard Drinks/Week Comments Yes 12 (1 standard drink = 0.6 oz pu re alcohol) Feeling Safe Answer Date Recorded Are you in a relationship wi th someone who hurts you emotionally and/or physically? No 06/09/2024 Sex and Gender Information Value Date Recorded Sex Assigned at Male 03/18/2024 4:06 PM CDT Legal Sex Male 12:47 PM CDT Gender Identity Male 03/18/2024 4:06 PM CDT Sexual Orientation Not on file Last Filed Vital Signs Vital Sign Reading Time Taken Comments Blood Pressure 114/85 06/09/2024 12:11 PM SHEET METAL CONTRACTOR Pulse 76 06/09/2024 12:11 PM SHEET METAL CONTRACTOR Temperature 37.7 C (99.8 F) 06/09/2024 11:59 AM SHEET METAL CONTRACTOR Respiratory Rate 14 06/09/2024 12:1 1 PM SHEET METAL CONTRACTOR Oxygen Saturation 100% 06/09/2024 12: 11 PM SHEET METAL CONTRACTOR Inhaled Oxygen Concentration - - Weight 52.1 kg (114 lb 12.8 oz) 024 10:35 AM SHEET METAL CONTRACTOR Height 175.3 cm (5' 9 ) 06/03/2024 2:3 7 PM SHEET METAL CONTRACTOR Body Mass Index 16.95 06/03/2024 2:37 PM SHEET METAL CONTRACTOR Plan of Treatment Health Maintenance Due Date Last Done Comments FIT-DNA Q 3 years 12/12/2008 FIT/FOBT Q 1 year 12/12/2008 Flex Sig/CT Colonography Q 5 years 12/12/2008 ZOSTER VACCINE (2 of 2) 12/26/2021 10/31/2021, 04/28 DTAP/TDAP/TD VACCINES (2 - Tdap) 04/01/2023 04/01/20 13 HEPATITIS B VACCINES (1 of 3 - Risk 3-dose series) 2023 COVID-19 Vaccine (2 - 2023-2 5 season) 2024 09/03/2020 COLORECTAL SCREENING 05/05/2034 05/05/2024, 05/05/20 24 Colorectal Cancer Screening 05/05/2034 RSV VACCINE (60+ or ) (1 - 1-dose 75+ series) 12/12/2038 INFLUENZA VACCINE Completed 03/18/2024, , 04/13/2019, Additional history exists Procedures Procedure Name Priority Date/Time Associated Diagnosis Comments COLONOSCOPY REPORT 05/05/2024 12 :38 PM SHEET METAL CONTRACTOR from Last 3 Months or Most Recently Relevant to Health Maintenance Results * COLONOSCOPY REPORT (05/05/2024 12:38 PM SHEET METAL CONTRACTOR) Narrative Procedure Note Regino Garcia MD - 05/05/2024 12:38 PM CST [facility] Endoscopy [facility] Endoscopy Patient Name: Oseas Anthony Procedure Date: 05/05/2024 Date of : 1965 Age: 58 Attending MD: Regino Garcia MD, Procedure: Colonoscopy Indications: Lower abdominal pain, Chronic diarrhea, Weight loss, Elevated calprotectin level Providers: Regino Garcia MD Referring MD: Elijah Humphrey MD Medicines: Monitored Anesthesia Care Procedure: Informed consent was obtained for the procedure, including moderate sedation after risks were discussed. Based on the pre-procedure assessment, including review of the patient's medical history, medications, allergies, and review of systems, the patient was deemed to be an appropriate candidate for sedation. A timeout was performed. Continuous ECG monitoring, pulse oximetry, blood pressure monitoring, and direct observation were performed. The Colonoscope was introduced through the anus and advanced to 15 cm into the ileum. The colonoscopy was performed without difficulty. The patient tolerated the procedure well. The quality of the bowel preparation was good. The terminal ileum, ileocecal valve, appendiceal orifice, and rectum were photographed. Estimated Blood Loss: Estimated blood loss was minimal. Findings: The perianal and digital rectal examinations were normal. Multiple diverticula were found in the sigmoid colon. Internal hemorrhoids were found during retroflexion. The hemorrhoids were small. The exam was otherwise normal throughout the examined colon. Biopsies for histology were taken with a cold forceps from the right colon and left colon for evaluation of microscopic colitis. The terminal ileum appeared normal. Complications: No immediate complications. Impression: - Diverticulosis in the sigmoid colon. - Internal hemorrhoids. - The examined portion of the ileum was normal. - Biopsies were taken with a cold forceps from the right colon and left colon for evaluation of microscopic colitis. Recommendation: - Await pathology results. Regino Garcia MD 05/05/2024 12:38:07 PM This report has been signed electronically. Number of Addenda: [address] [address] Regino Garcia MD GI PROCEDURE ORDERABL ES Final Result from Last 3 Months or Most Recently Relevant to Health Maintenance Insurance [facility] [id number] Advance Directives For more information, please contact: [phone] * Full Code (Latest Code Status on File) Date Activated Date Inactivated Comments 06/09/2024 10:34 AM 06/09/2024 2:26 PM * Full Code Date Activated Date Inactivated Comments 05/05/2024 11:07 AM 05/05/2024 3:03 PM Care Teams General Car Supervisor Yard Relationship Specialty Start Date End Date Elijah Humphrey MD [address] [place] [id number] PCP - General Family Practice 03/12/24
[2024-09-18 20:09] LABS: Basophils Absolute Auto 0.2 K/mm3 (0.0-0.1); Eosinophils Absolute Auto 0.4 K/mm3 (0-0.3); Eosinophils Percent Auto 4.5 % (0-4.4); Hematocrit 37.1 % (42.0-52.0); Hemoglobin 12.6 g/dL (14.0-18.0); Immature Granulocyte Absolute 0.02 K/mm3 (0.00-0.031); Immature Granulocyte Percent A 0.2 % (0-0.5); Lymphocytes Absolute Auto 1.63 K/mm3 (0.9-3.2); Lymphocytes Percent Auto 18.4 % (18.3-44.2); Mean Corpuscular Hemoglobin 35.4 pg (26-34); Mean Corpuscular Volume 104.2 fl (80-100); Mean Platelet Volume 9.8 fl (7.4-10.4); Monocytes Absolute Auto 0.7 K/mm3 (0.1-0.6); Monocytes Percent Auto 8.1 % (2.6-8.5); Neutrophils Absolute Auto 5.9 K/mm3 (1.3-6.7); Neutrophils Percent Auto 66.8 % (45.5-73.1); Platelet Count Result 395 k/mm3 (150-375); Red Blood Count 3.56 M/mm3 (4.6-6.20); Red Cell Distribution Width 13.2 % (11.5-14.5); White Blood Count 8.8 K/mm3 (4.5-10.0)
[2024-09-18 20:24] LABS: Alanine Aminotransferase 30 U/L (6-50); Albumin Level 4.3 g/dL (3.5-5.1); Alkaline Phosphatase 65 U/L (38-126); Anion Gap 7 mmol/L (4-12); Aspartate Amino Transferase 54 U/L (17-59); Bilirubin,Total 0.5 mg/dL (0.2-1.3); Blood Urea Nitrogen 9 mg/dL (9-20); Calcium 9.6 mg/dL (8.4-10.2); Carbon Dioxide 28 mmol/L (22-30); Chloride 99 mmol/L (98-107); Estimated Glomerular Filt Rate > 60; Glucose 102 mg/dL (65-110); Potassium 4.7 mmol/L (3.4-5.0); Sodium 134 mmol/L (137-145)
== END 2024-09-18 14:45 | disposition home or self-care (01) ==
LOC: ANHBWCLAB 14:46
PROVIDERS: PCP Family Medicine; Visit Provider Family Medicine
DX: R74.8 Abnormal levels of other serum enzymes (principal); R10.2 Pelvic and perineal pain; D64.9 Anemia, unspecified; U09.9 Post COVID-19 condition, unspecified; G43.909 Migraine, unspecified, not intractable, without status migrainosus; G89.29 Other chronic pain
CPT/HCPCS: 36415; 80053; 85025

== ENCOUNTER 2024-10-13 08:00 | Outpatient (CLI) | payer OTHER, SELFPAY ==
--- OUTSIDE RECORDS SUMMARY | 2024-10-13 08:07 | XMS_ITS | Encounter Summary ---
Author Organization [facility] Address [address] [place] [address] Phone Care Team Providers Care Flarer Name Role Phone Elijah Humphrey MD Primary Care Provider [phone] Karan Quezada MD Unavailable Mariajose Gandhi MD Unavailable [phone] Jose Cantrell MD Unavailable [phone] Encounter Details Date Type Department Care Team (Latest Contact Info) Description 06/03/2024 Transcribe [facility] 1 [place] [address] Regino Garcia MD [address] [facility] [address] [place] [address] Collagenous colitis (Primary Dx) Social History [...] * (ABNORMAL) CALPROTECTIN, FECES (06/03/2024 1:54 PM MANAGER CHEMICAL) CALPROTECTIN, FECES 79.3(H) <=49.0 mcg/g 06/04/2024 2:24 PM MANAGER CHEMICAL [facility] Comment: <50 mcg/g Normal 50-120 mcg/g Borderline >120 mcg/g Abnormal Stool Non-Phlebotomy Collection / Unknown 06/03/2024 1:54 PM MANAGER CHEMICAL 06/03/2024 1:57 PM MANAGER CHEMICAL us Regino Garcia MD IMMUNOLOGY ORDERABLES Final Result [facility] [address] [place] [address], documented in this encounter Visit Diagnoses Diagnosis Collagenous colitis- Primary Other and unspecified noninfectious gastroenteritis and colitis documented in this encounter Additional Health Concerns Assessment Noted Time PHQ-9 Depression Total Score: 0 10/09/19 21 10:00 AM CDT documented as of this encounter Care Teams Flarer Relationship Specialty Start Date End Date Elijah Humphrey MD [address] [place] [address] PCP - General Family Medicine 05/31/21 Karan Quezada MD #[address] [address] Consulting Physician Colon and Rectal Surgery 11/01/21 Mariajose Gandhi MD #2 [place] [address] Consulting Physician Gastroenterology 04/13/22 Jose Cantrell MD [address]2 [place] [phone] Consulting Physician Neurology 05/20/24 documented as of this encounter
--- OUTSIDE RECORDS SUMMARY | 2024-10-13 08:07 | XMS_ITS | Clinical Summary ---
Author Organization [facility] Address [address] [place] [address] Phone Care Team Providers Care Antisqueak Worker Name Role Phone Elijah Humphrey MD Primary Care Provider [phone] Allergies Active Allergy Reactions Criticality Noted Date Comments Eggshell Membrane Nausea and Vomiting Low 0 Fluvoxamine Rash Low 10/01/2023 Milk Nausea and Vomiting Low 12/12/1969 Sulfa (Sulfonamide Antibiotics) Hives High 04/01 As a kid Medications ALPRAZolam (XANAX) 0.5 mg tablet Take 0.5 mg by mouth 2 times daily as needed for Anxiety. 02/27/20 24 Active valACYclovir (VALTREX) 500 mg tablet 07/02/19 18 Active ondansetron (ZOFRAN ODT) 8 mg Tablet, Rapid Dissolve 07/02/19 24 Active esomeprazole (NexIUM) 20 mg Capsule, Delayed Release(E.C.) Take 20 mg by mouth daily at bedtime. 01/31/20 23 Active famotidine (PEPCID) 20 mg tablet 12/31/19 24 Active oxyCODONE-aceta minophen (PERCOCET) 5-325 mg tablet 12/13/19 23 Active lactobacillus rhamnosus, GG, (Culturelle) 10 billion cell Capsule 07/02/19 24 Active multivitamin (DAILY-CARMELA) tablet Take 1 Tablet by mouth daily. Active amoxicillin (AMOXIL) 500 mg capsule Take 500 mg by mouth 2 times daily. Active budesonide (PULMICORT RESPULE) 0.5 mg/2 mL Suspension for Nebulization Mix 2 vials with 6 splenda packets and swallow once daily 120 mL 3 05/19/20 24 Active hyoscyamine 0.[address] 1 Tablet (0.125 mg) under tongue every 6 hours as needed for Spasm. 120 Tablet 06/02/20 24 Active fluconazole (DIFLUCAN) 200 mg tablet Take 2 tablets (400 mg) on day 1, then 1 tablet (200 mg) daily for an additional 13 days 15 Tablet 1 06/16/20 24 Active dupilumab (Dupixent Pen) 300 mg/2 mL Pen InjectorIndicat ions:Eosinophil ic esophagitis Inject 2 mL (300 mg) by subcutaneous injection every 7 days. 8 mL 5 06/18/20 24 Active budesonide (ENTOCORT EC) 3 mg Enteric Coated 24 hour capsule Take 3 Capsules (9 mg) by mouth daily. 90 Capsule 3 10/03/19 25 Active budesonide (ENTOCORT EC) 3 mg Enteric Coated 24 hour capsule Take 2 Capsules (6 mg) by mouth daily. 60 Capsule 3 06/26/20 24 2024 Discontinued Active Problems No known active problems Encounters Date Type Department Care Team Description 10/02/2024 Orders Only [facility] [address] [facility] [address] [place] [address] Regino Garcia MD from Last 3 Months [...] Comments Blood Pressure 114/85 06/09/2024 12:11 PM HALL P[facility]TER Pulse 76 06/09/2024 12:11 PM [facility] Temperature 37.7 C (99.8 F) 06/09/2024 11:59 AM HALL P[facility]TER Respiratory Rate 14 06/09/2024 12:1 1 PM H[facility]TER Oxygen Saturation 100% 06/09/2024 12: 11 PM H[facility]TER Inhaled Oxygen Concentration - - Weight 52.1 kg (114 lb 12.8 oz) 024 10:35 AM HALL PORTER Height 175.3 cm (5' 9 ) 06/03/2024 2:37 PM H[facility]TER Body Mass Index 16.95 06/03/2024 2:37 PM HALL PORTER Plan of Treatment Upcoming Encounters Date Type Department Care Team (Late st Contact Info) Description 10/16/2024 1:30 PM CDT Office Visit [facility] Gastroenter[facility] [address] [place] [address] Sandra Nixon PA [address] [place] [address] Health Maintenance Due Date Last Done Comments [...] Comments COLONOSCOPY REPORT 05/05/2024 12 :38 PM HALL PORTER from Last 3 Months or Most Recently Relevant to Health Maintenance Results * COLONOSCOPY REPORT (05/05/2024 12:38 PM HALL PORTER) Narrative Procedure Note Regino Garcia MD - 05/05/2024 12:38 PM CST [facility] Endoscopy Patient Name: Oseas Anthony Procedure [...] signed electronically. Number of Addenda: [address] [place] [address] Regino Garcia MD GI PROCEDURE ORDERABL ES Final Result from Last 3 Months or Most Recently Relevant to Health Maintenance Insurance [facility] [id number] Advance Directives For more information, please contact: [phone] * Full Code (Latest Code Status on File) Date Activated Date Inactivated Comments 06/09/2024 10:34 AM 06/09/2024 2:26 PM * Full Code Date Activated Date Inactivated Comments 05/05/2024 11:07 AM 05/05/2024 3:03 PM Care Teams Antisqueak Worker Relationship Specialty Start Date End Date Elijah Humphrey MD [address] [place] [id number] PCP - General Family Practice 03/12/24
--- OUTSIDE RECORDS SUMMARY | 2024-10-13 08:08 | XMS_ITS | Continuity of Care Document ---
Author Organization [facility] Address [address] [place] [address] Phone Care Team Providers Care Athletic Coach Name Role Phone Rafael Jacome Unavailable Unavailable [...] Copied on Encounter Office/outpati ent Visit, [facility], [address] [place] [address] [address], [place], [place], [id number], [place] tel:[phone] [facility] No Information 0-200 9 Naa Rafael. [address] [facility] [place] [address], [place], [address], [place]. tel:[phone] Referring Provider: Alison Pittman, [address] [facility] Eye [facility], [place], [address]. [facility], [id number] [place] [address] [address], [place], [place], [id number], [place] tel:[phone] [facility] No Information 4-200 9 Kryimi Rafael. [address] [place] [address], [facility], [place]. tel:[phone] Referring Provider: Rafael Dianamanoj , [address] [place] [address], [place], [facility]. tel:[phone] Office/outpati ent Visit, [facility] Eye [facility], [address] [place] [address] [address], [place], [place], [id number], [place] tel:[phone] [facility] No Information 1-200 8 Krkaynasmanoj Calerohil. [address] [place] [address], [facility], [place]. tel:[phone] Referring Provider: Hemal DiazB N [address] [place] [address], [place], [address]. [facility] Eye [facility], [address] [place] [address] [address], [place], [place], [id number], [place] tel:[phone] [facility] No Information October-0 8-200 8 Naa Calerohil. [address] [place] [address], [facility], [place]. tel:[phone] Referring Provider: Marshall Morris, [address] [facility] [address], [place], [address]. tel:[phone] Office/outpati ent Visit, [facility], [address] [place] [address] [address], [place], [place], [id number], [place] tel:[phone] [facility] No Information Apr-0 2-200 7 Mio Olivares. [address] [facility], [facility] [place], [address], [place]. tel:[phone] Referring Provider: Alison Pittman [address] [place] [address] Eye [facility], [place], [address]. Office/outpati ent Visit, [facility], [address], [place], [place], [address], [place] [phone] No Information 0 1-200 7 Mio Olivares. [address] [facility], [address], [place], [place], [address], [place]. tel:[phone] Referring Provider: Alison Pittman, [address] [place] [address] Eye [facility], [place], [address]. [facility], [address], [place], [place], [address], [place] tel:-[phone] [facility] No Information 0 -200 7 Robbi Cordoba. [address] [place], [place] [address]ate [place] , [address], [place], [place], [facility], [place]. tel:[phone] Referring Provider: Adalid Morris, [facility] [address], [place], [place], [facility]. tel:[phone] [facility], [address], [place], [place], [address], [place] tel:[phone] [facility] No Information 1 2-200 7 Robbi Cordoba. [facility] , [address], [place], [address], [place]. tel:[phone] Referring Provider: Adalid Morris, [facility] [address], [place], [address]. tel:[phone] Office Consultation [facility], [address], [place], [place], [id number], [place] tel:[phone] [facility] No Information 1-200 7 Robbi Cordoba. [facility] , [address], [place], [address], [place]. tel:[phone] Referring Provider: Alison Pittman, [address] [place] [address] [place], [address]. Family History Family Member Type Diagnosis Age At Onset No Information Payers Payer name Insurance type Covered republican ID Authorct collier(s) [facility] Commercial CI [id number] Social History Type Description Quantity Date Captured [...]
--- OUTSIDE RECORDS SUMMARY | 2024-10-13 08:08 | XMS_ITS | Clinical Summary ---
Author Organization [facility] Address [address] [place] [address] Phone Care Team Providers Care Retail Assistant Name Role Phone Elijah Humphrey MD Primary Care Provider [phone] Karan Quezada MD Unavailable Mariajose Gandhi MD Unavailable [phone] Jose Cantrell MD Unavailable [phone] Allergies Active Allergy Reactions Criticality Noted Date [...] ons:Crohn's disease of colon with other complication Patient weight is 54.6 kg, stelara IV [...] Department Care Team Description 08/14/2024 2:15 PM HAT MARKER [facility] [address] [place] [address] Jose Cantrell MD Chronic migraine with aura without status migrainosus, not intractable (Primary Dx); Myelopathy (HCC) Discharge Disposition: Discharged to home or Selfcare 08/12/2024 Travel from Last 3 Months Immunizations Immunization Administration Dates Next Due Covid-19 Vaccine, Vector-nr, Rs-ad26, Pf, 0.5 Ml (Tiragiu/J&Rule.) 09/03/2020 DT Vaccine 04/01/2013 Influenza Vaccine greater [...] Recorded Total Score - Questions 1-9 0 03/2021 Sexually Active Control Partners Comments Not Currently Female Sex and Gender Information Value Date Recorded Sex Assigned at Not on file Legal Sex Male 10:29 PM CDT Gender Identity Not on file Sexual Orientation Not on file Last Filed Vital Signs Vital Sign Reading Time Taken Comments Blood Pressure 120/70 08/14/2024 2:22 PM HAT MARKER Pulse 101 08/14/2024 2:22 PM HAT MARKER Temperature 36.6 C (97.8 F) 08/14/2024 2:22 PM HAT MARKER Respiratory Rate 16 08/14/2024 2:22 PM HAT MARKER Oxygen Saturation 100% 08/14/2024 2:22 PM HAT MARKER Inhaled Oxygen Concentration - - Weight 55.1 kg (121 lb 8 oz) 08/14/2024 2:22 PM HAT MARKER Height 175.3 cm (5' 9 ) 08/14/2024 2:22 PM HAT MARKER Body Mass Index 17.94 08/14/2024 2:22 PM HAT MARKER Plan of Treatment Health Maintenance Due Date Last Done Comments Cologuard 12/12/2013 Immunochemical Fecal Occult Blood 12/12/2013 Pneumococcal Immunization (50+ years) (1 of 1 - PCV) 12/12/2013 Zoster Immunization (2 of 2) 12/26/2021 10/31/2021, 04/28/2021 Colonoscopy 05/05/2025 05/05/2024, 10/2023, 03/03/2022, Additional history exists Colorectal Cancer Screening 05/05/2025 Respiratory Syncytial Virus (RSV) Immunization (Adult) (1 - 1-dose 75+ series) 12/12/2038 05/05/2024, 10/2023, 03/03/2022, Additional history exists DTaP/Tdap/Td Immunization [...] Procedure Name Priority Date/Time Associated Diagnosis Comments PSA SCREEN Routine 06/12/2023 11:59 AM HAT MARKER Crohn's disease with complication, unspecified gastrointestinal tract location (HCC) Pain in thoracic spine Cervicalgia Shortness of breath Post-COVID syndrome Cachexia (HCC) HEPATITIS C ANTIBODY Routine 07/21/2022 2:31 PM HAT MARKER Crohn's disease without complication, unspecified gastrointestinal tract location (HCC) Chronic abdominal pain Weight loss from Last 3 Months or Most Recently Relevant to Health Maintenance Results * PSA SCREEN (06/12/2023 11:59 AM HAT MARKER) PSA SCREEN, TOTAL 0.31 <4.00 ng/mL 06/12/2023 12:46 PM HAT MARKER [facility] Blood Venipuncture / Unknown 06/12/2023 11:59 AM HAT MARKER 06/12/2023 12:06 PM HAT MARKER Narrative [facility] - 06/12/2023 12:46 PM HAT MARKER The ALINITY Total PSA assay is a Chemiluminescent Microparticle Immunoassay (CMIA) for the quantitative determination of total PSA (both free PSA and PSA complexed to [id number]) in human serum. Total PSA values obtained with different assay methods, including Duran PSA assays, cannot be used interchangeably. us Elijah Humphrey MD CHEMISTRY ORDERABLES Final Resu lt [facility] [address] [place] [address] * HEPATITIS C ANTIBODY (07/21/2022 2:31 PM HAT MARKER) hepatitis C antibody 0.05 <1 S/CO [facility] ARCH [id number] 07/22/2022 12:37 AM HAT MARKER [facility] Comment: Signal/Cutoff ratio < 0.79 is Nondetected Signal/Cutoff ratio 0.80-0.99 is Grayzone Signal/Cutoff ratio > 0.99 is Detected Supplemental assays are recommended if signal/cutoff ratio is >/=1.00. Signal/cutoff ratio result >/= 5.00 is 97% predictive of positivity for recombinant immunoblot assay (RIBA) and will be reported to the [place] Department of Public Health as required. Blood Venipuncture / Unknown 07/21/2022 2:31 PM HAT MARKER 07/21/2022 3:32 PM HAT MARKER us Mariajose Gandhi MD CHEMISTRY ORDERABLES Final Resu lt Performing Organization Address City/[facility] Co de Phone Number [facility] [address] [facility] [place] [address], from Last 3 Months or Most Recently Relevant to Health Maintenance Insurance [facility] Advance Directives * Full Code (Latest Code Status on File) Date Activated Date Inactivated Comments 05/31/2021 10:17 PM 06/02/2021 2:14 PM CPR-Full T reatment: FULL ARREST: Attempt Resuscitation/CPR wit intubation and mechanical ventilation. PRE-ARREST: Use entire range of life support measures to stabilize the patient. Care Teams Retail Assistant Relationship Specialty Start Date End Date Elijah Humphrey MD [address] [place] [address] PCP - General Family Medicine 05/31/21 Karan Quezada MD #[address] [address] Consulting Physician Colon and Rectal Surgery 11/01/21 Mariajose Gandhi MD #[address] [place] [address] Consulting Physician Gastroenterology 04/13/22 Jose Cantrell MD [address] [place] [phone] Consulting Physician Neurology 05/20/24
[2024-10-16 15:28] LABS: Growth Hormone ICMA 0.4 ng/mL (< OR = 7.1)
[2024-10-17 13:29] LABS: Testosterone Total 289 ng/dL (250-1100)
== END 2024-10-13 08:01 | disposition home or self-care (01) ==
LOC: ANHBWCLAB 08:01
PROVIDERS: PCP Family Medicine; Visit Provider Family Medicine
DX: R53.83 Other fatigue (principal); R64 Cachexia
CPT/HCPCS: 36415; 83003; 84403

== ENCOUNTER 2024-10-30 10:26 | Outpatient (CLI) | payer OTHER, SELFPAY ==
--- OUTSIDE RECORDS SUMMARY | 2024-10-30 11:14 | XMS_ITS | Encounter Summary ---
Author Organization [facility] Address [address] [place] [address] Phone Care Team Providers Care Art Display Maker Name Role Phone Phan Gilmore MD Primary Care Provider Elijah Humphrey MD Primary Care Provider Karan Quezada MD Unavailable Mariajose Gandhi MD Unavailable [phone] Jose Cantrell MD Unavailable [phone] Reason for Visit * Reason Comments Medication Refill Encounter Details Date Type Department Care Team (Late st Contact Info) Description 10/04/2020 Refill [facility] - [facility] [address] [place] [address] Phan Gilmore MD [address] [place] [address] Medication Refill Social History Tobacco [...] C. difficile Rule-Out 05/31/2021 05/31/20212020 12:16 AM CUPROUS CHLORIDE OPERATOR C. difficile Rule-Out 12/08/2021 12/09/20212021 12:16 AM CDT documented as of this encounter Care Teams Art Display Maker Relationship Specialty Start Date End Date Phan Gilmore MD [address] [place] [address] PCP - General Internal Medicine 09/07/19 05/30/21 Elijah Humphrey MD [address] [place], [place] [address] [place] [address] PCP - General Family Medicine 05/31/21 Karan Quezada MD #[address] [address] Consulting Physician Colon and Rectal Surgery 11/01/21 Mariajose Gandhi MD [address] [place] [address] Consulting Physician Gastroenterology 04/13/22 Jose Cantrell MD [address] [place] [phone] Consulting Physician Neurology 05/20/24 documented as of this encounter
--- OUTSIDE RECORDS SUMMARY | 2024-10-30 11:14 | XMS_ITS | Encounter Summary ---
Author Organization [facility] Address [address] [place] [address] Care Team Providers Care Nurse Wound Care Name Role Phone Elijah Humphrey MD Primary Care Provider [phone] Reason for Visit * Reason Comments Med Refill Encounter Details Date Type Department Care Team (Late st Contact Info) Description 10/30/2024 Refill [facility] Gastroenterology [facility] [address] [place] [address] Regino Garcia MD [address] [facility] [address] [place] [address] Eosinophilic esophagitis Social History Tobacco Use Types Packs/Day Years Used Date Smoking Tobacco: Former Cigarettes Passive Smoke Exposure: Never Smokeless Tobacco: Never Comments:Quit . Smoked socially in college. Alcohol [...] PM CDT Sexual Orientation Not on file documented as of this encounter Miscellaneous Notes * Telephone Encounter - Jose Soto RN - 10/30/2024 8:06 AM CDT BANDAR 10/16 ROV 01/06/25 documented in this encounter Plan of Treatment Upcoming Encounters Date Type Department Care Team (Late st Contact Info) Description 01/06/2025 3:20 PM CDT Office Visit [facility] Gastroenterology [facility] [address] [place] [address] Regino Garcia MD [address] [facility] [address] [place] [address] documented as of this encounter Visit Diagnoses Diagnosis Eosinophilic esophagitis documented in this encounter Care Teams Nurse Wound Care Relationship Specialty Start Date End Date Elijah Humphrey MD [address] [place] [address] PCP - General Family Practice 03/12/24 documented as of this encounter
--- OUTSIDE RECORDS SUMMARY | 2024-10-30 11:14 | XMS_ITS | Clinical Summary ---
Author Organization [facility] Address [address] [place] [address] Phone Care Team Providers Care Surgical Consultant Name Role Phone Elijah Humphrey MD Primary Care Provider [phone] Allergies Active Allergy Reactions Criticality Noted Date Comments Eggshell Membrane Nausea and Vomiting Low 0 Fluvoxamine Rash Low 10/01/2023 Milk Nausea and Vomiting Low 12/12/1969 Sulfa (Sulfonamide Antibiotics) Hives High 04/01 As a kid Medications ALPRAZolam (XANAX) 0.5 mg tablet Take 0.5 mg by mouth 2 times daily as needed for Anxiety. Active valACYclovir (VALTREX) 500 mg tablet 018 Active ondansetron (ZOFRAN ODT) 8 mg Tablet, Rapid Dissolve Active esomeprazole (NexIUM) 20 mg Capsule, Delayed Release(E.C.) Take 20 mg by mouth daily at bedtime. 023 Active famotidine (PEPCID) 20 mg tablet Active oxyCODONE-aceta minophen (PERCOCET) 5-325 mg tablet 023 Active lactobacillus rhamnosus, GG, (Culturelle) 10 billion cell Capsule Active multivitamin (DAILY-CARMELA) tablet Take 1 Tablet by mouth daily. Active amoxicillin (AMOXIL) 500 mg capsule Take 500 mg by mouth 2 times daily. Active budesonide (PULMICORT RESPULE) 0.5 mg/2 mL Suspension for Nebulization Mix 2 vials with 6 splenda packets and swallow once daily 120 mL 3 024 Active budesonide (ENTOCORT EC) 3 mg Enteric Coated 24 hour capsule Take 3 Capsules (9 mg) by mouth daily. 90 Capsule 3 025 Active Dupixent Pen 300 mg/2 mL Pen InjectorIndicat ions:Eosinophil ic esophagitis INJECT 1 PEN SUBCUTANEOUSLY EVERY WEEK 8 mL 2 025 Active dupilumab (Dupixent Pen) 300 mg/2 mL Pen InjectorIndicat ions:Eosinophil ic esophagitis Inject 2 mL (300 mg) by subcutaneous injection every 7 days. 8 mL 5 024 2024 Discontinued budesonide (ENTOCORT EC) 3 mg Enteric Coated 24 hour capsule Take 2 Capsules (6 mg) by mouth daily. 60 Capsule 3 024 2024 Discontinued Active Problems No known active problems Encounters Date Type Department Care Team Description 10/30/2024 Refill [facility] [address] [place] [address] Regino Garcia MD Eosinophilic esophagitis 10/16/2024 1:30 PM CDT Office Visit [facility] [address] [place] [address] Sandra Nixon PA Eosinophilic esophagitis (Primary Dx); Collagenous colitis 10/02/2024 Orders Only [facility] [address] [facility] [address] [place] [address] Regino Garcia MD from Last 3 Months [...] Sign Reading Time Taken Comments Blood Pressure 119/79 10/16/2024 1:12 PM CDT Pulse 94 10/16/2024 1:12 PM CDT Temperature 37.7 C (99.8 F) 06/09/2024 11:59 AM STORM SASH MAKER Respiratory Rate 14 06/09/2024 12:11 PM STORM SASH MAKER Oxygen Saturation 100% 06/09/2024 12:11 PM STORM SASH MAKER Inhaled Oxygen Concentration - - Weight 57.4 kg (126 lb 9.6 oz) 10/16/2024 1:12 P M CDT Height 175.3 cm (5' 9 ) 10/16/2024 1:12 PM CDT Body Mass Index 18.7 10/16/2024 1:12 PM CDT Plan of Treatment Upcoming Encounters Date Type Department Care Team (Late st Contact Info) Description 01/06/2025 3:20 PM CDT Office Visit [facility] [address] [place] [address] Regino Garcia MD [address] [facility] [address] [place] [address] Health Maintenance Due Date Last Done Comments FIT-DNA Q 3 years 12/12/2008 FIT/FOBT Q 1 year 12/12/2008 Flex Sig/CT Colonography Q 5 years 12/12/2008 ZOSTER VACCINE (2 of 2) 12/26/2021 10/31/2021, 04/28 DTAP/TDAP/TD VACCINES (2 - Tdap) 04/01/2023 04/01/20 13 HEPATITIS B VACCINES (1 of 3 - Risk 3-dose series) 2023 COVID-19 Vaccine (2 - 2023-2 5 season) 2024 09/03/2020 Preventative Visit- Commercial 07/02/2024 COLORECTAL SCREENING 05/05/2034 05/05/2024, 05/05/20 24 Colorectal Cancer Screening 05/05/2034 RSV VACCINE (60+ or ) (1 - 1-dose 75+ series) 12/12/2038 INFLUENZA VACCINE Completed 03/18/2024, , 04/13/2019, Additional history exists Procedures Procedure Name Priority Date/Time Associated Diagnosis Comments COLONOSCOPY REPORT 05/05/2024 12 :38 PM STORM SASH MAKER from Last 3 Months or Most Recently Relevant to Health Maintenance Results * COLONOSCOPY REPORT (05/05/2024 12:38 PM STORM SASH MAKER) Narrative Procedure Note Regino Garcia MD - 05/05/2024 12:38 PM CST [facility] Endoscopy Patient Name: Oseas Anthony Procedure Date: [...] signed electronically. Number of Addenda: 0 [address] [facility] [address] Regino Garcia MD GI PROCEDURE ORDERABL ES Final Result from Last 3 Months or Most Recently Relevant to Health Maintenance Insurance [employer] [id number] Advance Directives For more information, please contact: [phone] * Full Code (Latest Code Status on File) Date Activated Date Inactivated Comments 06/09/2024 10:34 AM 06/09/2024 2:26 PM * Full Code Date Activated Date Inactivated Comments 05/05/2024 11:07 AM 05/05/2024 3:03 PM Care Teams Surgical Consultant Relationship Specialty Start Date End Date Elijah Humphrey MD [address] [place] [address] PCP - General Family Practice 03/12/24
--- OUTSIDE RECORDS SUMMARY | 2024-10-30 11:14 | XMS_ITS | Encounter Summary ---
Author Organization [facility] Address [address] [place] [address] Phone Care Team Providers Care Component Engineer Name Role Phone Elijah Humphrey MD Primary Care Provider [phone] Karan Quezada MD Unavailable Mariajose Gandhi MD Unavailable [phone] Jose Cantrell MD Unavailable [phone] Encounter Details Date Type Department Care Team (Latest Contact Info) Description 06/03/2024 [facility] [address] [place] [address] Regino Garcia MD [address] [facility] [address] [place] [address] Collagenous colitis (Primary Dx) Social History [...] * (ABNORMAL) CALPROTECTIN, FECES (06/03/2024 1:54 PM FISHERY DIVISION CHIEF) CALPROTECTIN, FECES 79.3(H) <=49.0 mcg/g 06/04/2024 2:24 PM FISHERY DIVISION CHIEF [facility] Comment: <50 mcg/g Normal 50-120 mcg/g Borderline >120 mcg/g Abnormal Stool Non-Phlebotomy Collection / Unknown 06/03/2024 1:54 PM FISHERY DIVISION CHIEF 06/03/2024 1:57 PM FISHERY DIVISION CHIEF us Regino Garcia MD IMMUNOLOGY ORDERABLES Final Result [facility] [address] [facility] [place] [address], documented in this encounter Visit Diagnoses Diagnosis Collagenous colitis- Primary Other and unspecified noninfectious gastroenteritis and colitis documented in this encounter Additional Health Concerns Assessment Noted Time PHQ-9 Depression Total Score: 0 10/09/19 21 10:00 AM CDT documented as of this encounter Care Teams Component Engineer Relationship Specialty Start Date End Date Elijah Humphrey MD [address] [place] [address] PCP - General Family Medicine 05/31/21 Karan Quezada MD #[address] [address] Consulting Physician Colon and Rectal Surgery 11/01/21 Mariajose Gandhi MD [address] [place] [address] Consulting Physician Gastroenterology 04/13/22 Jose Cantrell MD [address] [place] [phone] Consulting Physician Neurology 05/20/24 documented as of this encounter
--- OUTSIDE RECORDS SUMMARY | 2024-10-30 11:14 | XMS_ITS | Continuity of Care Document ---
Author Organization [facility] Address [address] [place] [address] Phone Care Team Providers Care Mine Motor Engineer Name Role Phone Rafael Jacome Unavailable Unavailable [...] ent Visit, Est [facility], [address] [place] [address] [address], [place], [place], [id number], [place] tel:[phone] [facility] No Information 0-200 9 Naa Rafael. [address] [facility] [address], [place], [address], [place]. tel:[phone] Referring Provider: Alison Pittman, [address] [facility] Eye [facility], [place], [address]. [facility], [address] [place] [address] [address], [place], [place], [id number], [place] tel:[phone] [facility] No Information 4-200 9 Kryimi Rafael. [address] [place] [address], [facility], [place]. tel:[phone] Referring Provider: Rafael Dianamanoj , [address] [place] [address], [place], [place], [facility]. tel:[phone] Office/outpati ent Visit, [facility] Eye [facility], [address] [place] [address] [address], [place], [place], [address], [place] tel:[phone] [facility] No Information 1-200 8 Krkaynasmanoj Calerohil. [address] [place] [address], [facility], [place]. tel:[phone] Referring Provider: Hemal DiazB N [address] [place] [address], [place], [address]. [facility], [address] [place] [address] [address], [place], [place], [id number], [place] tel:[phone] [facility] No Information October-0 8-200 8 Naa Calerohil. [address] [place] [address], [facility], [place]. tel:[phone] Referring Provider: Marshall Morris, [address] [facility], [place] [address], [place], [address]. tel:[phone] Office/outpati ent Visit, [facility], [address] [place] [address] [address], [place], [place], [id number], [place] tel:[phone] [facility] No Information Apr-0 2-200 7 Mio Olivares. [address] [facility], [facility] [place], [place], [address], [place]. tel:[phone] Referring Provider: Alison Pittman [address] [place] [address] Eye [facility], [place], [address]. Office/outpati ent Visit, Est [facility], [address], [place], [place], [address], [place] [phone] [facility] No Information 0 1-200 7 Mio Olivares. [address] [facility], [address], [place], [place], [address], [place]. tel:[phone] Referring Provider: Alison Pittman, [address] [place] [address] Eye [facility], [place], [address]. [facility], [address], [place], [place], [address], [place] [phone] [facility] No Information 0 -200 7 Robbi Cordoba. [address] [place], [place] [address]ate [address] , [address], [place], [facility], [place]. tel:[phone] Referring Provider: Adalid Morris, [facility] [address], [place], [facility]. tel:[phone] [facility], [address], [place], [place], [address], [place] tel:[phone] [facility] No Information 1 2-200 7 Robbi Cordoba. [facility] , [address], [place], [address], [place]. tel:[phone] Referring Provider: Adalid Morris, Abhin[facility] [address], [place], [address]. tel:[phone] Office Consultation [facility], [address], [place], [place], [address], [place] tel:[phone] [facility] No Information 1-200 7 Rob[address] Cordoba. Abhin[facility] , [address], [place], [address], [place]. tel:[phone] Referring Provider: Alison Pittman, [address] [place] [address] [place], [address]. Family History Family Member Type Diagnosis Age At Onset No Information Payers Payer name Insurance type Covered democrat ID Authorct collier(s) [facility] Commercial CI [id number] Social History Type Description Quantity Date Captured [...]
--- OUTSIDE RECORDS SUMMARY | 2024-10-30 11:14 | XMS_ITS | Clinical Summary ---
Author Organization [facility] Address [address] [place] [address] Phone Care Team Providers Care Managing Supervisor Name Role Phone Elijah Humphrey MD Primary Care Provider [phone] Karan Quezada MD Unavailable Mariajose Gandhi MD Unavailable [phone] Jose Cantrell MD Unavailable [phone] Allergies Active Allergy Reactions Criticality Noted Date [...] Department Care Team Description 08/14/2024 2:15 PM DOCUMENT IMPROVEMENT SPECIALIST [facility] [address] [place] [address] Jose Cantrell MD Chronic migraine with aura without status migrainosus, not intractable (Primary Dx); Myelopathy (HCC) Discharge Disposition: Discharged to home or Selfcare 08/12/2024 Travel from Last 3 Months Immunizations Immunization Administration Dates Next Due Covid-19 Vaccine, Vector-nr, Rs-ad26, Pf, 0.5 Ml ([employer] 09/03/2020 DT Vaccine 04/01/2013 Influenza Vaccine greater [...] Comments Blood Pressure 120/70 08/14/2024 2:22 PM DOCUMENT IMPROVEMENT SPECIALIST Pulse 101 08/14/2024 2:22 PM DOCUMENT IMPROVEMENT SPECIALIST Temperature 36.6 C (97.8 F) 08/14/2024 2:22 PM DOCUMENT IMPROVEMENT SPECIALIST Respiratory Rate 16 08/14/2024 2:22 PM DOCUMENT IMPROVEMENT SPECIALIST Oxygen Saturation 100% 08/14/2024 2:22 PM DOCUMENT IMPROVEMENT SPECIALIST Inhaled Oxygen Concentration - - Weight 55.1 kg (121 lb 8 oz) 08/14/2024 2:22 PM DOCUMENT IMPROVEMENT SPECIALIST Height 175.3 cm (5' 9 ) 08/14/2024 2:22 PM DOCUMENT IMPROVEMENT SPECIALIST Body Mass Index 17.94 08/14/2024 2:22 PM DOCUMENT IMPROVEMENT SPECIALIST Plan of Treatment Health Maintenance Due Date [...] Comments PSA SCREEN Routine 06/12/2023 11:59 AM DOCUMENT IMPROVEMENT SPECIALIST Crohn's disease with complication, unspecified gastrointestinal tract location (HCC) Pain in thoracic spine Cervicalgia Shortness of breath Post-COVID syndrome Cachexia (HCC) HEPATITIS C ANTIBODY Routine 07/21/2022 2:31 PM DOCUMENT IMPROVEMENT SPECIALIST Crohn's disease without complication, unspecified gastrointestinal tract location (HCC) Chronic abdominal pain Weight loss from Last 3 Months or Most Recently Relevant to Health Maintenance Results * PSA SCREEN (06/12/2023 11:59 AM DOCUMENT IMPROVEMENT SPECIALIST) PSA SCREEN, TOTAL 0.31 <4.00 ng/mL 06/12/2023 12:46 PM DOCUMENT IMPROVEMENT SPECIALIST [facility] Blood Venipuncture / Unknown 06/12/2023 11:59 AM DOCUMENT IMPROVEMENT SPECIALIST 06/12/2023 12:06 PM DOCUMENT IMPROVEMENT SPECIALIST Narrative [email or web address] - 06/12/2023 12:46 PM DOCUMENT IMPROVEMENT SPECIALIST The ALINITY Total PSA assay is a Chemiluminescent Microparticle Immunoassay (CMIA) for the quantitative determination of total PSA (both free PSA and PSA complexed to [id number]) in human serum. Total PSA values obtained with different assay methods, including Duran PSA assays, cannot be used interchangeably. us Elijah Humphrey MD CHEMISTRY ORDERABLES Final Resu lt [facility] [address] [place] [address] * HEPATITIS C ANTIBODY (07/21/2022 2:31 PM DOCUMENT IMPROVEMENT SPECIALIST) hepatitis C antibody 0.05 <1 S/CO [facility] ARCH [id number] 07/22/2022 12:37 AM DOCUMENT IMPROVEMENT SPECIALIST [facility] Comment: Signal/Cutoff ratio < 0.79 is Nondetected Signal/Cutoff ratio 0.80-0.99 is Grayzone Signal/Cutoff ratio > 0.99 is Detected Supplemental assays are recommended if signal/cutoff ratio is >/=1.00. Signal/cutoff ratio result >/= 5.00 is 97% predictive of positivity for recombinant immunoblot assay (RIBA) and will be reported to the [place] Department of Public Health as required. Blood Venipuncture / Unknown 07/21/2022 2:31 PM DOCUMENT IMPROVEMENT SPECIALIST 07/21/2022 3:32 PM DOCUMENT IMPROVEMENT SPECIALIST us Mariajose Gandhi MD CHEMISTRY ORDERABLES Final Resu lt Performing Organization Address City/[facility] Co de Phone Number [facility] [address] [facility] [place] [place] [address], from Last 3 Months or Most Recently Relevant to Health Maintenance Insurance [facility] Advance Directives * Full Code (Latest Code Status on File) Date Activated Date Inactivated Comments 05/31/2021 10:17 PM 06/02/2021 2:14 PM CPR-Full T reatment: FULL ARREST: Attempt Resuscitation/CPR wit intubation and mechanical ventilation. PRE-ARREST: Use entire range of life support measures to stabilize the patient. Care Teams Managing Supervisor Relationship Specialty Start Date End Date Elijah Humphrey MD [address] [place] [address] PCP - General Family Medicine 05/31/21 Karan Quezada MD #[address] [address] Consulting Physician Colon and Rectal Surgery 11/01/21 Mariajose Gandhi MD [address] [place] [address] Consulting Physician Gastroenterology 04/13/22 Jose Cantrell MD [address] [place] [phone] Consulting Physician Neurology 05/20/24
[2024-10-30 20:53] LABS: Prostate Specific Antigen 0.8 ng/mL (< OR = 4.0)
[2024-11-04 16:23] LABS: Testosterone Free 31.2 pg/mL (35.0-155.0); Testosterone Total 281 ng/dL (250-1100)
== END 2024-10-30 10:27 | disposition home or self-care (01) ==
LOC: ANHBWCLAB 10:27
PROVIDERS: PCP Family Medicine; Visit Provider Family Medicine
DX: R79.89 Other specified abnormal findings of blood chemistry (principal); R64 Cachexia; R53.83 Other fatigue
CPT/HCPCS: 36415; 84153; 84402; 84403; G0103

== ENCOUNTER 2024-12-31 08:56 | Outpatient (CLI) | payer OTHER, SELFPAY ==
--- OUTSIDE RECORDS SUMMARY | 2024-12-31 09:02 | XMS_ITS | Encounter Summary ---
Author Organization [facility] Address [address] [place] [address] Phone Care Team Providers Care Soccer Ball Assembler Name Role Phone Elijah Humphrey MD Primary Care Provider [phone] Karan Quezada MD Unavailable Mariajose Gandhi MD Unavailable [phone] Jose Cantrell MD Unavailable [phone] Encounter Details Date Type Department Care Team (Latest Contact Info) Description 06/03/[address] [facility] [address] [place] [address] Regino Garcia MD [address] [facility] [address] [place] [address] Collagenous colitis (Primary Dx) Social History [...] * (ABNORMAL) CALPROTECTIN, FECES (06/03/2024 1:54 PM TOE FORMER) CALPROTECTIN, FECES 79.3(H) <=49.0 mcg/g 06/04/2024 2:24 PM TOE [facility] Comment: <50 mcg/g Normal 50-120 mcg/g Borderline >120 mcg/g Abnormal Stool Non-Phlebotomy Collection / Unknown 06/03/2024 1:54 PM TOE FORMER 06/03/2024 1:57 PM TOE FORMER us Regino Garcia MD IMMUNOLOGY ORDERABLES Final Result [facility] [address] [place] [address], documented in this encounter Visit Diagnoses Diagnosis Collagenous colitis- Primary Other and unspecified noninfectious gastroenteritis and colitis documented in this encounter Additional Health Concerns Assessment Noted Time PHQ-9 Depression Total Score: 0 10/09/19 21 10:00 AM CDT documented as of this encounter Care Teams Soccer Ball Assembler Relationship Specialty Start Date End Date Elijah Humphrey MD [address] [place] [address] PCP - General Family Medicine 05/31/21 Karan Quezada MD [address] [address] Consulting Physician Colon and Rectal Surgery 11/01/21 Mariajose Gandhi MD [address] [place] [address] Consulting Physician Gastroenterology 04/13/22 Jose Cantrell MD [address] [place] [phone] Consulting Physician Neurology 05/20/24 documented as of this encounter
--- OUTSIDE RECORDS SUMMARY | 2024-12-31 09:02 | XMS_ITS | Clinical Summary ---
Author Organization [facility] Address [address] [place] [address] Phone Care Team Providers Care Barber Instructor Name Role Phone Elijah Humphrey MD Primary Care Provider [phone] Allergies Active Allergy Reactions Criticality Noted Date [...] (PEPCID) 20 mg tablet 12/31/19 24 Active oxyCODONE-acetam inophen (PERCOCET) 5-325 mg tablet 12/13/19 23 Active [...] daily 120 mL 3 05/19/20 24 Active budesonide (ENTOCORT EC) 3 mg Enteric Coated 24 hour capsule Take 3 Capsules (9 mg) by mouth daily. 90 Capsule 3 10/03/19 25 Active Dupixent Pen 300 mg/2 mL Pen InjectorIndicati ons:Eosinophilic esophagitis INJECT 1 PEN SUBCUTANEOUSLY EVERY WEEK 8 mL 2 10/31/19 25 Active fluconazole (DIFLUCAN) 200 mg tablet Take 1 Tablet (200 mg) by mouth daily for 14 days. 14 Tablet 12/31/19 25 025 Active Active Problems No known active problems Encounters Date Type Department Care Team Description 12/30/2024 Orders Only [facility] Gastroenterology [facility] [address] [facility] [address] [place] [address] Regino Garcia MD 12/17/2024 External Device Data STL ABSTRACTION Provider, Abstract 12/15/2024 Medication Prior Auth Encounter [facility] [address] [place] [address] Shannan Win 10/30/2024 Refill [facility] [address] [place] [address] Regino Garcia MD Eosinophilic esophagitis 10/16/2024 1:30 PM CDT Office Visit [facility] [address] [place] [address] Sandra Nixon PA Eosinophilic esophagitis (Primary Dx); Collagenous colitis 10/02/2024 Orders Only [facility] Gastroenterology [facility] [address] [facility] [address] [place] [address] Regino Garcia MD from Last 3 Months [...] 37.7 C (99.8 F) 06/09/2024 11:59 AM VAN LOADER Respiratory Rate 14 06/09/2024 12:11 PM VAN LOADER Oxygen Saturation 100% 06/09/2024 12:11 PM VAN LOADER Inhaled Oxygen Concentration - - Weight 57.4 kg (126 lb 9.6 oz) 10/16/2024 1:12 P M CDT Height 175.3 cm (5' 9) 10/16/2024 1:12 PM CDT Body Mass Index 18.7 10/16/2024 1:12 PM CDT Plan of Treatment Upcoming Encounters Date Type Department Care Team (Late st Contact Info) Description 01/06/2025 3:20 PM CDT Office Visit [facility] Gastroenterology [facility] [address] [place] [address] Regino Garcia MD [address] [facility] [address] [place] [address] Health Maintenance Due Date Last Done Comments FIT-DNA Q 3 years 12/12/2008 FIT/FOBT Q 1 year 12/12/2008 Flex Sig/CT Colonography Q 5 years 12/12/2008 ZOSTER VACCINE (2 of 2) 12/26/2021 10/31/2021, 04/28 DTAP/TDAP/TD VACCINES (2 - Tdap) 04/01/2023 04/01/20 13 COVID-19 Vaccine (2 - 2023-2 5 season) 2024 09/03/2020 INFLUENZA VACCINE (#1) 2025 4, 04/09/2021, 04/13/2019, Additional history exists COLORECTAL SCREENING 05/05/2034 05/05/2024, 05/05/20 24 Colorectal Cancer Screening 05/05/2034 RSV VACCINE (60+ or ) (1 - 1-dose 75+ series) 12/12/2038 Procedures Procedure Name Priority Date/Time Associated Diagnosis Comments COLONOSCOPY REPORT 05/05/2024 12 :38 PM VAN LOADER from Last 3 Months or Most Recently Relevant to Health Maintenance Results * COLONOSCOPY REPORT (05/05/2024 12:38 PM VAN LOADER) Narrative Procedure Note Regino Garcia MD - 05/05/2024 12:38 PM CST [facility] Endoscopy Patient Name: Oseas Anthony Procedure Date: [...] electronically. Number of Addenda: 0 [address] [place] [address] [facility] [address] Regino Garcia MD GI PROCEDURE ORDERABL ES Final Result from Last 3 Months or Most Recently Relevant to Health Maintenance Insurance [facility] [id number] [facility] Address: [facility] [id number] [place] [address] Advance Directives For more information, please contact: [phone] * Full Code (Latest Code Status on File) Date Activated Date Inactivated Comments 06/09/2024 10:34 AM 06/09/2024 2:26 PM * Full Code Date Activated Date Inactivated Comments 05/05/2024 11:07 AM 05/05/2024 3:03 PM Care Teams Barber Instructor Relationship Specialty Start Date End Date Elijah Humphrey MD [address] [place] [phone] PCP - General Family Practice 9/11/24
--- OUTSIDE RECORDS SUMMARY | 2024-12-31 09:02 | XMS_ITS | Encounter Summary ---
Author Organization [facility] Address [address] [place] [address] Care Team Providers Care Patent Law Specialist Name Role Phone Elijah Humphrey MD Primary Care Provider [phone] Encounter Details Date Type Department Care Team (Late Contact Info) Description 12/30/2024 Orders Only [facility] Gastroenterology [facility] [address] [facility] [address] [place] [address] Regino Garcia MD [address] [address] Social History Tobacco Use Types Packs/Day Years [...] as of this encounter Plan of Treatment Upcoming Encounters Date Type Department Care Team (Late Contact Info) Description 01/06/2025 3:20 PM CDT Office Visit [facility] Gastroenterology [facility] [address] [place] [phone] Regino Garcia MD [address] [facility] [address] [place] [address] documented as of this encounter Visit Diagnoses Not on filedocumented in this encounter Care Teams Patent Law Specialist Relationship Specialty Start Date End Date Elijah Humphrey MD [address] [place] [phone] PCP - General Family Practice 03/12/24 documented as of this encounter
--- OUTSIDE RECORDS SUMMARY | 2024-12-31 09:02 | XMS_ITS | Encounter Summary ---
Author Organization [facility] Address [address] [place] [address] Phone Care Team Providers Care Teacher Vocal Name Role Phone Phan Gilmore MD Primary Care Provider Elijah Humphrey MD Primary Care Provider Karan Quezada MD Unavailable Mairajose Gandhi MD Unavailable [phone] Jose Cantrell MD Unavailable [phone] Reason for Visit * Reason Comments Medication Refill Encounter Details Date Type Department Care Team (Late st Contact Info) Description 10/04/2020 Refill [facility] - Internal Medicine [facility] [address] [place] [address] Phan Gilmore MD [address] [place] [address] Medication Refill Social History Tobacco [...] C. difficile Rule-Out 05/31/2021 05/31/20212020 12:16 AM AVIATION MEDICINE SPECIALIST C. difficile Rule-Out 12/08/2021 12/09/20212021 12:16 AM CDT documented as of this encounter Care Teams Teacher Vocal Relationship Specialty Start Date End Date Phan Gilmore MD [address] [place] [address] PCP - General Internal Medicine 09/07/19 05/30/21 Elijah Humphrey MD [address] [place], [place] [address] [address] PCP - General Family Medicine 05/31/21 Karan Quezada MD #[address] [address] Consulting Physician Colon and Rectal Surgery 11/01/21 Mariajose Gandhi MD #2 [place] [address] Consulting Physician Gastroenterology 04/13/22 Jose Cantrell MD #2 [place] [phone] Consulting Physician Neurology 05/20/24 documented as of this encounter
--- OUTSIDE RECORDS SUMMARY | 2024-12-31 09:03 | XMS_ITS | Clinical Summary ---
Author Organization [facility] [place] Address [address] [place] [address] Phone Care Team Providers Care Security Messenger Name Role Phone Elijah Humphrey MD Primary Care Provider [phone] Karan Quezada MD Unavailable Mariajose Gandhi MD Unavailable [phone] Jose Cantrell MD Unavailable [phone] Allergies Active Allergy Reactions Criticality Noted Date [...] 06/02/2021 UTI (urinary tract infection) 05/31/2021 06/02/2021 Immunizations Immunization Administration Dates Next Due Covid-19 Vaccine, Vector-nr, Rs-ad26, Pf, 0.5 Ml ([employer]/J&J) 09/03/2020 DT Vaccine 04/01/2013 Influenza Vaccine greater [...] Comments Blood Pressure 120/70 08/14/2024 2:22 PM MIS DIRECTOR Pulse 101 08/14/2024 2:22 PM MIS DIRECTOR Temperature 36.6 C (97.8 F) 08/14/2024 2:22 PM MIS DIRECTOR Respiratory Rate 16 08/14/2024 2:22 PM MIS DIRECTOR Oxygen Saturation 100% 08/14/2024 2:22 PM MIS DIRECTOR Inhaled Oxygen Concentration - - Weight 55.1 kg (121 lb 8 oz) 08/14/2024 2:22 PM MIS DIRECTOR Height 175.3 cm (5' 9) 08/14/2024 2:22 PM MIS DIRECTOR Body Mass Index 17.94 08/14/2024 2:22 PM MIS DIRECTOR Plan of Treatment Health Maintenance Due Date Last Done Comments Cologuard 12/12/2008 Immunochemical Fecal Occult Blood 12/12/2008 Pneumococcal Immunization (50+ years) (1 of 1 - PCV) 12/12/2013 Zoster Immunization (2 of 2) 12/26/2021 10/31/2021, 04/28/2021 Respiratory Syncytial Virus (RSV) Immunization (Adult) (1 - Risk 60-74 years 1-dose series) 2023 Colonoscopy 05/05/2025 05/05/2024, 10/2023, 03/03/2022, Additional history exists Colorectal Cancer Screening 05/05/2025 DTaP/Tdap/Td Immunization Discontinued 04/01/2013 Hepatitis C Virus (HCV) Screening Completed 07/21/2022 PSA Discussion Completed 06/12/2023 Influenza Immunization Completed , 04/12/2023, 06/03/2022, Additional history exists SARS-COV-2 Immunization Completed 03/17/20 24, 04/19/2023, 09/03/2020 Hepatitis B Immunization Aged Out No longer eligible based on patient's age to complete this topic Human Papillomavirus (HPV) Immunization Aged Out No longer eligible based on patient's age to complete this topic Meningococcal Immunization (ACWY) Aged Out No longer eligible based on patient's age to complete this topic Rotavirus Immunization Aged Out No lo nger eligible based on patient's age to complete this topic Procedures Procedure Name Priority Date/Time Associated Diagnosis Comments PSA SCREEN Routine 06/12/2023 11:59 AM MIS DIRECTOR Crohn's disease with complication, unspecified gastrointestinal tract location (HCC) Pain in thoracic spine Cervicalgia Shortness of breath Post-COVID syndrome Cachexia (HCC) HEPATITIS C ANTIBODY Routine 07/21/2022 2:31 PM MIS DIRECTOR Crohn's disease without complication, unspecified gastrointestinal tract location (HCC) Chronic abdominal pain Weight loss from Last 3 Months or Most Recently Relevant to Health Maintenance Results * PSA SCREEN (06/12/2023 11:59 AM MIS DIRECTOR) PSA SCREEN, TOTAL 0.31 <4.00 ng/mL 06/12/2023 12:46 PM MIS DIRECTOR [facility] Blood Venipuncture / Unknown 06/12/2023 11:59 AM MIS DIRECTOR 06/12/2023 12:06 PM MIS DIRECTOR Narrative [facility] - 06/12/2023 12:46 PM MIS DIRECTOR The Dynamics DirectNITY Total PSA assay is a Chemiluminescent Microparticle Immunoassay (CMIA) for the quantitative determination of total PSA (both free PSA and PSA complexed to [id number]) in human serum. Total PSA values obtained with different assay methods, including Duran PSA assays, cannot be used interchangeably. us Elijah Humphrey MD CHEMISTRY ORDERABLES Final Resu lt [facility] #1 [place] [address] * HEPATITIS C ANTIBODY (07/21/2022 2:31 PM MIS DIRECTOR) hepatitis C antibody 0.05 <1 S/CO [facility] ARCH [id number] B 07/22/2022 12:37 AM MIS DIRECTOR [facility] Comment: Signal/Cutoff ratio < 0.79 is Nondetected Signal/Cutoff ratio 0.80-0.99 is Grayzone Signal/Cutoff ratio > 0.99 is Detected Supplemental assays are recommended if signal/cutoff ratio is >/=1.00. Signal/cutoff ratio result >/= 5.00 is 97% predictive of positivity for recombinant immunoblot assay (RIBA) and will be reported to the [place] Department of Public Health as required. Blood Venipuncture / Unknown 07/21/2022 2:31 PM MIS DIRECTOR 07/21/2022 3:32 PM MIS DIRECTOR us Mariajose Gandhi MD CHEMISTRY ORDERABLES Final Resu lt Performing Organization Address City/State/[facility] Co de Phone Number [facility] [address] [place] [address], from Last 3 Months or Most Recently Relevant to Health Maintenance Insurance [facility] Advance Directives * Full Code (Latest Code Status on File) Date Activated Date Inactivated Comments 05/31/2021 10:17 PM 06/02/2021 2:14 PM CPR-Full T reatment: FULL ARREST: Attempt Resuscitation/CPR wit intubation and mechanical ventilation. PRE-ARREST: Use entire range of life support measures to stabilize the patient. Care Teams Security Messenger Relationship Specialty Start Date End Date Elijah Humphrey MD [address] [place] [address] PCP - General Family Medicine 05/31/21 Karan Quezada MD #[address] [address] Consulting Physician Colon and Rectal Surgery 11/01/21 Mariajose Gandhi MD #2 [place] [address] Consulting Physician Gastroenterology 04/13/22 Jose Cantrell MD #2 [place] [address] Consulting Physician Neurology 05/20/24
--- OUTSIDE RECORDS SUMMARY | 2024-12-31 09:03 | XMS_ITS | Continuity of Care Document ---
Author Organization [facility] Address [address] [facility] [address] [place] [address] Phone Care Team Providers Care Conference Assistant Name Role Phone Rafael Jacome Unavailable Unavailable [...] Copied on Encounter Office/outpati ent Visit, Est [facility], [address] [place] [address] [address], [place], [place], [id number], [place] tel:[phone] [employer] [facility] No Information 0-200 9 Naa Rafael. [address] [facility] [address], [place], [address], [place]. tel:[phone] Referring Provider: Alison Pittman, [address] [facility] Eye [facility], [place], [address]. [facility], [address] [place] [address] [address], [place], [place], [id number], [place] tel:[phone] [facility] No Information 4-200 9 Kryimi Rafael. [address] [place] [address], [facility], [place]. tel:[phone] Referring Provider: Rafael Dianamanoj , [address] [place] [address], [place], [facility]. tel:[phone] Office/outpati ent Visit, [facility] Eye [facility], [address] [place] [address] [address], [place], [place], [id number], [place] tel:[phone] [facility] No Information 1-200 8 Krkaynasmanoj Calerohil. [address] [place] [address], [facility], [place]. tel:[phone] Referring Provider: Hemal DiazB N [address] [place] [address], [place], [address]. [facility] Eye [facility], [address] [place] [address] [address], [place], [place], [id number], [place] tel:[phone] [facility] No Information October-0 8-200 8 Naa Calerohil. [address] [place] [address], [facility], [place]. tel:[phone] Referring Provider: Marshall Morris, [address] [facility] [address], [place], [address]. tel:[phone] Office/outpati ent Visit, [facility] Eye [facility], [address] [place] [address] [address], [place], [place], [id number], [place] tel:[phone] [facility] No Information Apr-0 2-200 7 Mio Olivares. [address] [facility], [facility] [place], [id number], [place]. tel:[phone] Referring Provider: Alison Pittman [address] [place] [address] Eye [facility], [place], [address]. Office/outpati ent Visit, Est [facility], [address], [place], [place], [id number], [place] [phone] [facility] No Information 0 1-200 7 Mio Olivares. [address] [facility], [address], [place], [place], [id number], [place]. tel:[phone] Referring Provider: Alison Pittman, [address] [place] [address] Eye [facility], [place], [address]. [facility], [address], [place], [place], [id number], [place] tel:-[phone] [facility] No Information 0 -200 7 Robbi Cordoba. [address] [place], [place] [address] , [address], [place], [place], [facility], [place]. tel:[phone] Referring Provider: Adalid Morris, [facility] [address], [place], [place], [facility]. tel:[phone] [facility], [address], [place], [place], [id number], [place] tel:[phone] [facility] No Information 1 2-200 7 Robbi Cordoba. [facility] , [address], [place], [address], [place]. tel:[phone] Referring Provider: Adalid Morris, [facility] [address], [place], [address]. tel:[phone] Office Consultation [facility], [address], [place], [place], [id number], [place] tel:[phone] [facility] No Information 1-200 7 Rob[address] Cordoba. [facility] , [address], [place], [address], [place]. tel:[phone] Referring Provider: Alison Pittman, [address] [place] [address] [place], [address]. 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) [facility] Commercial CI [id number] Social History Type Description Quantity Date Captured [...]
== END 2024-12-31 08:57 | disposition home or self-care (01) ==
LOC: ANHBWCLAB 08:58
PROVIDERS: PCP Family Medicine; Visit Provider Family Medicine
DX: R79.89 Other specified abnormal findings of blood chemistry (principal)
CPT/HCPCS: 36415; 84402; 84403

== ENCOUNTER 2025-03-17 13:43 | Outpatient (CLI) | payer OTHER, SELFPAY ==
--- OUTSIDE RECORDS SUMMARY | 2009-05-11 09:30 | XMS_ITS | Continuity of Care Document ---
Author Organization [facility] Address [address] [place] [address] Phone Care Team Providers Care Private Branch Exchange Service Adviser Name Role Phone Rafael Jacome Unavailable Unavailable Procedures Procedure Date Office/outpatient Visit, Est Visual Field Examination(s) Office/outpatient Visit, Est Visual Field Examination(s) Office/outpatient Visit, Est Office/outpatient Visit, Est Corneal Pachymetry Fundus Photography W/ Report Optic Nerve Topography Optic Nerve Topography Visual Field Examination(s) Office Consultation Advance Directives Directive Yes / No Effective Date File Name No Information Encounters Encounter Description Practice Location Reason(s) For Visit Diagnoses Date Provider Providers Copied on Encounter Office/outpati ent Visit, Est [facility], [address] [place] [address] [address], [place], [place], [address], [place] tel:[phone] [employer] [facility] No Information 0-200 9 Naa Rafael. [address] [facility], [place], [address], [place]. tel:[phone] Referring Provider: Alison Pittman, [address] [facility] Eye [facility], [place], [address]. [facility], [address] [place] [address] [address], [place], [place], [id number], [place] tel:[phone] [facility][note 3] No Information 4-200 9 Kryimi Rafael. [address] [place] [address], [facility], [place]. tel:[phone] Referring Provider: Rafael Dianamanoj , [address] [place] [address], [place], [place], [facility]. tel:[phone] Office/outpati ent Visit, [facility] Eye [facility], [address] [place] [address] [address], [place], [place], [id number], [place] tel:[phone] [facility][note 3] No Information 1-200 8 Krkaynasmanoj Calerohil. [address] [place] [address], [facility], [place]. tel:[phone] Referring Provider: Hemal DiazB N [address] [place] [address], [place], [address]. [facility] Eye [facility], [address] [place] [address] [address], [place], [place], [address], [place] tel:[phone] [facility][note 3] No Information October-0 8-200 8 Naa Calerohil. [address] [place] [address], [facility], [place]. tel:[phone] Referring Provider: Marshall Morris, [address] [facility], [place], [address]. tel:[phone] Office/outpati ent Visit, [facility] Eye [facility], [address] [place] [address] [address], [place], [place], [address], [place] tel:[phone] [facility][note 3] No Information Apr-0 2-200 7 Mio Olivares. [address] [facility], [facility] [place], [place], [address], [place]. tel:[phone] Referring Provider: Alison Pittman [address] [place] [address] Eye [facility], [place], [address]. Office/outpati ent Visit, Est [facility], [address], [place], [place], [address], [place] [phone] [facility] No Information 0 1-200 7 Mio Olivares. [address] [facility], [address], [place], [place], [address], [place]. tel:[phone] Referring Provider: Alison Pittman, [address] [place] [address] Eye [facility], [place], [address]. [facility], [address], [place], [place], [address], [place] tel:-[phone] [facility] No Information 0 -200 7 Robbi Cordoba. [address] [place], [place] [address]ate [address] , [address], [place], [place], [facility], [place]. tel:[phone] Referring Provider: Adalid Morris, [facility] [address], [place], [facility]. tel:[phone] [facility], [address], [place], [place], [address], [place] tel:[phone] [facility] No Information 1 2-200 7 Robbi Cordoba. [facility] , [address], [place], [address], [place]. tel:[phone] Referring Provider: Adalid Morris, [facility] [address], [place], [address]. tel:[phone] Office Consultation [facility], [address], [place], [place], [address], [place] tel:[phone] [facility] No Information 1-200 7 Robbi Cordoba. [facility] , [address], [place], [address], [place]. tel:[phone] Referring Provider: Alison Pittman, [address] [place] [address] [place], [address]. 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) [facility] Commercial CI [id number] Social History Type Description Quantity Date Captured Comments Sex Male Smoking Status No Information Chief Complaint And Reason For Visit No Information Reason For Referral Reason For Referral No Information History Of Present Illness Encounter Date Complaint History Of Prese nt Illness No Information Functional Status Date Functional Assessmen t No Information Instructions Date Instruction Additional Infor mation No Information Assessments Type Assessment Date No Information Patient Care Teams Name Effective Dates (start - stop) Status Members No Information
--- OUTSIDE RECORDS SUMMARY | 2025-03-17 15:25 | XMS_ITS | Encounter Summary ---
Author Organization [facility] Address [address] [place] [address] Phone Care Team Providers Care Editing Computer Publisher Name Role Phone Elijah Humphrey MD Primary Care Provider [phone] Karan Quezada MD Unavailable Mariajose Gandhi MD Unavailable [phone] Jose Cantrell MD Unavailable [phone] Encounter Details Date Type Department Care Team (Latest Contact Info) Description 06/03/2024 [facility] 1 [place] [address] Regino Garcia MD [address] [facility] [address] [place] [address] Collagenous colitis (Primary Dx) Social History [...] * (ABNORMAL) CALPROTECTIN, FECES (06/03/2024 1:54 PM INTERNATIONAL GUEST COORDINATOR) CALPROTECTIN, FECES 79.3(H) <=49.0 mcg/g 06/04/2024 2:24 PM INTERNATIONAL GUEST COORDINATOR [facility] Comment: <50 mcg/g Normal 50-120 mcg/g Borderline >120 mcg/g Abnormal Stool Non-Phlebotomy Collection / Unknown 06/03/2024 1:54 PM INTERNATIONAL GUEST COORDINATOR 06/03/2024 1:57 PM INTERNATIONAL GUEST COORDINATOR us Regino Garcia MD IMMUNOLOGY ORDERABLES Final Result [facility] [address] [place] [address], documented in this encounter Visit Diagnoses Diagnosis Collagenous colitis- Primary Other and unspecified noninfectious gastroenteritis and colitis documented in this encounter Additional Health Concerns Assessment Noted Time PHQ-9 Depression Total Score: 0 10/09/19 21 10:00 AM CDT documented as of this encounter Care Teams Editing Computer Publisher Relationship Specialty Start Date End Date Elijah Humphrey MD PCP - General Family Medicine 05/31/21 Karan Quezada MD #[address] [address] Consulting Physician Colon and Rectal Surgery 11/01/21 Mariajose Gandhi MD #2 [place] [address] Consulting Physician Gastroenterology 04/13/22 Jose Cantrell MD #2 [place] [address] Consulting Physician Neurology 05/20/24 documented as of this encounter
--- OUTSIDE RECORDS SUMMARY | 2025-03-17 15:25 | XMS_ITS | Clinical Summary ---
Author Organization [facility] [place] Address [address] [place] [address] Phone Care Team Providers Care Thread Separator Name Role Phone Elijah Humphrey MD Primary Care Provider [phone] Karan Quezada MD Unavailable Mariajose Gandhi MD Unavailable [phone] Jose Cantrell MD Unavailable [phone] Allergies Active Allergy Reactions Criticality Noted Date [...] Encounters Date Type Department Care Team Description 01/13/2025 Travel 01/07/2025 Transcribe Orders [facility] 1 [place] [address] Regino Garcia MD Collagenous colitis (Primary Dx) from Last 3 Months Immunizations Immunization Administration Dates Next Due Covid-19 Vaccine, Vector-nr, Rs-ad26, Pf, 0.5 Ml ([employer]/J&J) 09/03/2020 DT Vaccine 04/01/2013 Influenza Vaccine greater [...] Comments Blood Pressure 120/70 08/14/2024 2:22 PM FOREIGN SERVICE TEACHER Pulse 101 08/14/2024 2:22 PM FOREIGN SERVICE TEACHER Temperature 36.6 C (97.8 F) 08/14/2024 2:22 PM FOREIGN SERVICE TEACHER Respiratory Rate 16 08/14/2024 2:22 PM FOREIGN SERVICE TEACHER Oxygen Saturation 100% 08/14/2024 2:22 PM FOREIGN SERVICE TEACHER Inhaled Oxygen Concentration - - Weight 55.1 kg (121 lb 8 oz) 08/14/2024 2:22 PM FOREIGN SERVICE TEACHER Height 175.3 cm (5' 9) 08/14/2024 2:22 PM FOREIGN SERVICE TEACHER Body Mass Index 17.94 08/14/2024 2:22 PM FOREIGN SERVICE TEACHER Plan of Treatment Health Maintenance Due Date Last Done Comments Cologuard 12/12/2008 Immunochemical Fecal Occult Blood 12/12/2008 Pneumococcal Immunization (50+ years) (1 of 1 - PCV) 12/12/2013 Zoster Immunization (2 of 2) 12/26/2021 10/31/2021, 04/28/2021 Respiratory Syncytial Virus (RSV) Immunization (Adult) (1 - Risk 60-74 years 1-dose series) 2023 Influenza Immunization (#1) 2025 09/1 12/2023, 04/12/2023, 06/03/2022, Additional history exists Colonoscopy 05/05/2025 05/05/2024, 09/0 08/2021, 06/27/2021, Additional history exists Colorectal Cancer Screening 05/05/2025 DTaP/Tdap/Td Immunization Discontinued 04/01/2013 Hepatitis C Virus (HCV) Screening Completed 07/21/2022 PSA Discussion Completed 06/12/2023 SARS-COV-2 Immunization Completed 03/17/20 24, 04/19/2023, 09/03/2020 [...] Procedure Name Priority Date/Time Associated Diagnosis Comments CALPROTECTIN, FECES Routine 01/13/2025 10:18 AM CDT Collagenous colitis PSA SCREEN Routine 06/12/2023 11:59 AM FOREIGN SERVICE TEACHER Crohn's disease with complication, unspecified gastrointestinal tract location (HCC) Pain in thoracic spine Cervicalgia Shortness of breath Post-COVID syndrome Cachexia (HCC) HEPATITIS C ANTIBODY Routine 07/21/2022 2:31 PM FOREIGN SERVICE TEACHER Crohn's disease without complication, unspecified gastrointestinal tract location (HCC) Chronic abdominal pain Weight loss from Last 3 Months or Most Recently Relevant to Health Maintenance Results * (ABNORMAL) CALPROTECTIN, FECES (01/13/2025 10:18 AM CDT) CALPROTECTIN, FECES 222.0(H) <=49.0 mcg/g 01/14/2025 2:01 PM CDT [facility] Comment: <50 mcg/g Normal 50-120 mcg/g Borderline >120 mcg/g Abnormal Stool Non-Phlebotomy Collection / Unknown 01/13/2025 10:18 AM CDT 01/13/2025 12:11 PM CDT Regino Garcia MD IMMUNOLOGY ORDERABLES Final Result [facility] [address] [place] [address], [place] * PSA SCREEN (06/12/2023 11:59 AM FOREIGN SERVICE TEACHER) PSA SCREEN, TOTAL 0.31 <4.00 ng/mL 06/12/2023 12:46 PM FOREIGN SERVICE TEACHER [facility] Blood Venipuncture / Unknown 06/12/2023 11:59 AM FOREIGN SERVICE TEACHER 06/12/2023 12:06 PM FOREIGN SERVICE TEACHER Narrative [facility] - 06/12/2023 12:46 PM FOREIGN SERVICE TEACHER The Song[employer]ice[employer] Total PSA assay is a Chemiluminescent Microparticle Immunoassay (CMIA) for the quantitative determination of total PSA (both free PSA and PSA complexed to [id number]) in human serum. Total PSA values obtained with different assay methods, including Duran PSA assays, cannot be used interchangeably. us Elijah Humphrey MD CHEMISTRY ORDERABLES Final Resu lt [facility] #[address] [place] [address] * HEPATITIS C ANTIBODY (07/21/2022 2:31 PM FOREIGN SERVICE TEACHER) hepatitis C antibody 0.05 <1 S/CO [facility] ARCH [id number] 07/22/2022 12:37 AM FOREIGN SERVICE TEACHER [facility] Comment: Signal/Cutoff ratio < 0.79 is Nondetected Signal/Cutoff ratio 0.80-0.99 is Grayzone Signal/Cutoff ratio > 0.99 is Detected Supplemental assays are recommended if signal/cutoff ratio is >/=1.00. Signal/cutoff ratio result >/= 5.00 is 97% predictive of positivity for recombinant immunoblot assay (RIBA) and will be reported to the [place] Department of Public Health as required. Blood Venipuncture / Unknown 07/21/2022 2:31 PM FOREIGN SERVICE TEACHER 07/21/2022 3:32 PM FOREIGN SERVICE TEACHER us Mariajose Gandhi MD CHEMISTRY ORDERABLES Final Resu lt [facility] [address] [place] [address], [place] from Last 3 Months or Most Recently Relevant to Health Maintenance Insurance [facility] Advance Directives * Full Code (Latest Code Status on File) Date Activated Date Inactivated Comments 05/31/2021 10:17 PM 06/02/2021 2:14 PM CPR-Full T reatment: FULL ARREST: Attempt Resuscitation/CPR wit intubation and mechanical ventilation. PRE-ARREST: Use entire range of life support measures to stabilize the patient. Care Teams Thread Separator Relationship Specialty Start Date End Date Elijah Humphrey MD PCP - General Family Medicine 05/31/21 Karan Quezada MD #[address] [address] Consulting Physician Colon and Rectal Surgery 11/01/21 Mariajose Gandhi MD #2 [place] [address] Consulting Physician Gastroenterology 04/13/22 Jose Cantrell MD #2 [place] [address] Consulting Physician Neurology 05/20/24
--- OUTSIDE RECORDS SUMMARY | 2025-03-17 15:25 | XMS_ITS | Encounter Summary ---
Author Organization [facility] Address [address] [place] [address] Phone Care Team Providers Care Law Instructor Name Role Phone Elijah Humphrey MD Primary Care Provider [phone] Karan Quezada MD Unavailable Mariajose Gandhi MD Unavailable [phone] Jose Cantrell MD Unavailable [phone] Encounter Details Date Type Department Care Team (Latest Contact Info) Description 01/07/2025 [facility] 1 [place] [address] Regino Garcia MD [address] [facility] [address] [place] [address] Collagenous colitis (Primary Dx) Social History [...] this encounter Results * (ABNORMAL) CALPROTECTIN, FECES (01/13/2025 10:18 AM CDT) CALPROTECTIN, FECES 222.0(H) <=49.0 mcg/g 01/14/2025 2:01 PM CDT [facility] Comment: <50 mcg/g Normal 50-120 mcg/g Borderline >120 mcg/g Abnormal Stool Non-Phlebotomy Collection / Unknown 01/13/2025 10:18 AM CDT 01/13/2025 12:11 PM CDT us Regino Garcia MD IMMUNOLOGY ORDERABLES Final Result [facility] [address] [place] [address], documented in this encounter Visit Diagnoses Diagnosis Collagenous colitis- Primary Other and unspecified noninfectious gastroenteritis and colitis documented in this encounter Additional Health Concerns Assessment Noted Time PHQ-9 Depression Total Score: 0 10/09/19 21 10:00 AM CDT documented as of this encounter Care Teams Law Instructor Relationship Specialty Start Date End Date Elijah Humphrey MD PCP - General Family Medicine 05/31/21 Karan Quezada MD #[address] [address] Consulting Physician Colon and Rectal Surgery 11/01/21 Mariajose Gandhi MD #2 [place] [address] Consulting Physician Gastroenterology 04/13/22 Jose Cantrell MD #2 [place] [id number] Consulting Physician Neurology 05/20/24 documented as of this encounter
--- OUTSIDE RECORDS SUMMARY | 2025-03-17 15:25 | XMS_ITS | Encounter Summary ---
Author Organization [facility] Address [address] [place] [address] Care Team Providers Care Lockstitch Lining Maker Name Role Phone Elijah Humphrey MD Primary Care Provider [phone] Encounter Details Date Type Department Care Team (Late Contact Info) Description 02/18/2025 Results Follow-Up [facility] Gastroenterology [place] [address] [facility] [address] [place] [address] Regino Garcia MD [address] [address] PATHOLOGY Social History Tobacco Use Types Packs/Day Years Used Date Smoking Tobacco: Former Cigarettes Passive Smoke Exposure: Never Smokeless Tobacco: Never Comments:Quit . Smoked socially in college. Alcohol Use Standard Drinks/Week Comments Yes 6 (1 standard drink = 0.6 oz pur e alcohol) Feeling Safe Answer Date Recorded Are you in a relationship wi th someone who hurts you emotionally and/or physically? No 02/10/2025 Sex and Gender Information Value Date Recorded Sex Assigned at Male 03/18/2024 4:06 PM CDT Legal Sex Male 12:47 PM CDT Gender Identity Male 03/18/2024 4:06 PM CDT Sexual Orientation Not on file documented as of this encounter Plan of Treatment Upcoming Encounters Date Type Department Care Team (Late Contact Info) Description 06/30/2025 2:20 PM CLIENT TECHNOLOGIES SPECIALIST Office Visit [facility]enter[facility] [place] [address] [facility] [address] [place] [address] Regino Garcia MD [address] [facility] [address] [place] [address] documented as of this encounter Visit Diagnoses Not on filedocumented in this encounter Care Teams Lockstitch Lining Maker Relationship Specialty Start Date End Date Elijah Humphrey MD [address] [place] [phone] PCP - General Family Practice 03/12/24 documented as of this encounter
--- OUTSIDE RECORDS SUMMARY | 2025-03-17 15:25 | XMS_ITS | Clinical Summary ---
Author Organization [facility] Address [address] [place] [address] Phone Care Team Providers Care Clay Pigeon Setter Name Role Phone Elijah Humphrey MD Primary Care Provider [phone] Allergies Active Allergy Reactions Criticality Noted Date Comments Eggshell Membrane Nausea and Vomiting Low 0 Fluvoxamine Rash Low 10/01/2023 Milk Nausea and Vomiting Low 12/12/1969 Sulfa (Sulfonamide Antibiotics) Hives High 04/01 As a kid Medications valACYclovir (VALTREX) 500 mg tablet 018 Active ondansetron (ZOFRAN ODT) 8 mg Tablet, Rapid Dissolve 024 Active esomeprazole (NexIUM) 20 mg Capsule, Delayed Release(E.C.) Take 20 mg by mouth daily at bedtime. 023 Active famotidine (PEPCID) 20 mg tablet Active oxyCODONE-aceta minophen (PERCOCET) 5-325 mg tablet 023 Active lactobacillus rhamnosus, GG, (Culturelle) 10 billion cell Capsule 024 Active multivitamin (DAILY-CARMELA) tablet Take 1 Tablet by mouth daily. Active budesonide (PULMICORT RESPULE) 0.5 mg/2 mL Suspension for Nebulization Mix 2 vials with 6 splenda packets and swallow once daily 120 mL 3 024 Active Additional Information Patient not taking.Reported on 01/19/2025 dupilumab (Dupixent Pen) 300 mg/2 mL Pen InjectorIndicat ions:Eosinophil ic esophagitis Inject 2 mL (300 mg) by subcutaneous injection every 7 days. INJECT 1 PEN SUBCUTANEOUSLY EVERY WEEK 8 mL 3 025 Active cetirizine (ZyrTEC) 5 mg tablet Take 5 mg by mouth 2 times daily. Active fluconazole (DIFLUCAN) 200 mg tablet Take two tablets (400 mg) on day 1, then take one tablet (200 mg) daily for an additional 20 days for treatment of esophageal candidiasis. 22 Tablet Active budesonide (ENTOCORT EC) 3 mg Enteric Coated 24 hour capsule TAKE 3 CAPSULES(9 MG) BY MOUTH DAILY 90 Capsule 3 Active budesonide (ENTOCORT EC) 3 mg Enteric Coated 24 hour capsule Take 3 Capsules (9 mg) by mouth daily. 90 Capsule 3 025 2024 Discontinued Active Problems No known active problems Encounters Date Type Department Care Team Description 5 Refill [facility] Gastroenterology [place] [address] [place] [address] [place] [address] Regino Garcia MD 5 Results Follow-Up [facility] G[facility]enter[facility] [place] [address] [place] [address] [place] [address] Regino Garcia MD PATHOLOGY 5 External Device Data STL ABSTRACTION Provider, Abstract 5 10:20 AM CDT - 5 11:00 AM CDT Surgery [facility] [address] [place] [address] [place] [address] Regino Garcia MD checkout ESOPHAGOGASTRODUODENOSCOPY 5 10:18 AM CDT Anesthesia Event [facility] [address] [place] [address] [place] [address] Omkar Maurice MD 5 8:43 AM CDT - 5 11:11 AM CDT Hospital Encounter [facility] [address] [place] [address] [place] [address] Regino Garcia MD Eosinophilic esophagitis Discharge Disposition: Home or Self Care 5 Telephone [facility] Gastroenterology [place] [address] [facility] [address] [place] [address] [place] [address] Regino Garcia MD Results 5 Orders Only [facility] Gastroenterology [facility] [address] [place] [address] [place] [address] Shannan Win Collagenous colitis 5 External Device Data STL ABSTRACTION Provider, Abstract 5 3:20 PM CDT Office Visit [facility] Gastroenterology [facility] [address] [place] [address] [place] [address] Regino Garcia MD Collagenous colitis (Primary Dx); Eosinophilic esophagitis 5 Orders Only [facility]enter[facility] [place] [address] [facility] [place] [address] [place] [address] Regino Garcia MD 5 External Device Data STL ABSTRACTION Provider, Abstract 5 Medication Prior Auth Encounter [facility] [address] [place] [address] [place] [address] Shannan Win from Last 3 Months Family History Medical History Relation Name Comments Crohn's Disease Paternal Grandmother Cancer Sister stomach Colon Cancer Neg Hx Relation Name Status Comments Paternal Grandmother Sister Social History Tobacco Use Types Packs/Day [...] Sign Reading Time Taken Comments Blood Pressure 126/98 02/10/2025 10:50 AM CDT Pulse 92 02/10/2025 10:50 AM CDT Temperature 36.4 C (97.5 F) 02/10/2025 10:41 AM CDT Respiratory Rate 16 02/10/2025 10:50 AM CDT Oxygen Saturation 100% 02/10/2025 10:50 AM CDT Inhaled Oxygen Concentration - - Weight 57.2 kg (126 lb) 02/10/2025 9:07 AM CDT Height 175.3 cm (5' 9) 02/10/2025 9:07 AM CDT Body Mass Index 18.61 02/10/2025 9:07 AM CDT Plan of Treatment Upcoming Encounters Date Type Department Care Team (Late st Contact Info) Description 06/30/2025 2:20 PM CIGAR PACKER AND GRADER Office Visit [facility] Gastroenterology [facility] [address] [facility] [address] [place] [address] Regino Garcia MD [address] [facility] [address] [place] [address] Health Maintenance Due Date Last Done Comments FIT-DNA Q 3 years 12/12/2008 FIT/FOBT Q 1 year 12/12/2008 Flex Sig/CT Colonography Q 5 years 12/12/2008 ZOSTER VACCINE (2 of 2) 12/26/2021 10/31/2021, 04/28 DTAP/TDAP/TD VACCINES (2 - Tdap) 04/01/2023 04/01/20 13 INFLUENZA VACCINE (#1) 2025 4, 04/09/2021, 04/13/2019, Additional history exists COVID-19 Vaccine (2 - 2024-2 6 season) 2025 09/03/2020 COLORECTAL SCREENING 05/05/2034 05/05/2024, 05/05/20 24 Colorectal Cancer Screening 05/05/2034 RSV VACCINE (60+ or ) (1 - 1-dose 75+ series) 12/12/2038 Procedures Procedure Name Priority Date/Time Associated Diagnosis Comments UPPER ENDOSCOPY REPORT 10:47 AM CDT PATHOLOGY Pathology 02/10/2025 10:28 AM CDT Eosinophilic esophagitis NM ESOPHAGOGASTRODUODENOSCOP Y TRANSORAL DIAGNOSTIC 02/10/2025 10:20 AM CDT Eosinophilic esophagitis CALPROTECTIN, FECAL Routine 01/15/2025 8:01 AM CDT Collagenous colitis COLONOSCOPY REPORT 05/05/2024 12:38 PM CIGAR PACKER AND GRADER from Last 3 Months or Most Recently Relevant to Health Maintenance Results * UPPER ENDOSCOPY REPORT (02/10/2025 10:47 AM CDT) Narrative Procedure Note Regino Garcia MD - 02/10/2025 10:47 AM CDT [facility] Patient Name: Oseas Anthony Procedure Date: 02/10/2025 Date of : 1965 Age: 59 Attending MD: Regino Garcia MD, Procedure: Upper GI endoscopy Indications: Follow-up of eosinophilic esophagitis (Assess response to Dupixent) Providers: Regino Garcia MD Referring MD: Elijah [...] monitoring, and direct observation were performed. The Endoscope was introduced through the mouth, and advanced to the second part of duodenum. The upper GI endoscopy was accomplished without difficulty. The patient tolerated the procedure well. Estimated Blood Loss: Estimated blood loss was minimal. Findings: Esophagogastric landmarks were identified: the Z-line was found at 39 cm, the gastroesophageal junction was found at 40 cm and the site of hiatal narrowing was found at 40 cm from the incisors. Multiple small white plaques were found in the entire esophagus. Biopsies were obtained with cold forceps for histology in the mid esophagus and in the distal esophagus. Moderately erythematous mucosa was found in the gastric antrum. Biopsies were taken with a cold forceps for histology and Helicobacter pylori testing. The cardia and gastric fundus were normal on retroflexion. Patchy mildly erythematous mucosa was found in the duodenal bulb. Biopsies were taken with a cold forceps for histology. The second portion of the duodenum was normal. Complications: No immediate complications. Impression: - Esophagogastric landmarks identified. - Multiple small white plaques in the esophagus consistent in appearance with candidiasis. Biopsies were obtained in the mid esophagus and in the distal esophagus. - Erythematous mucosa in the antrum. Biopsied. - Erythematous duodenopathy. Biopsied. - Normal second portion of the duodenum. Recommendation: - Await pathology results. - Fluconazole 200 mg daily x 21 days. - Continue Dupixent. Regino Garcia MD 02/10/2025 10:47:25 AM This report has been signed electronically. Number of Addenda: 0 200 [facility] 207 [facility] [address] Regino Garcia MD GI PROCEDURE ORDERABL ES Final Result * PATHOLOGY (02/10/2025 10:28 AM CDT) CASE REPORT Surgical Pathology R eport Case: [id number] Authorizing Provider: Regino Garcia, Collected: 02/10/2025 10:28 AM Ordering Location: [facility] Received: 02/11/2025 07:08 AM [facility] Pathologist: Marilee Rae MD Specimens: A) - Small Intestine, bx erythema B) - Stomach, bx rule out hpylori C) - Esophagus, mid, bx rule out barretts; quirino D) - Esophagus, distal, bx rule out barretts; quirino 11:22 AM CDT [facility] SERVICES [facility] FINAL DIAGNOSIS A. Small intestine, erythema, biopsy: - Mild active duodenitis and foveolar metaplasia, suggestive of peptic injury. - Villi and plasma cells are present. - No evidence of Whipple's disease, celiac sprue or Giardia. B. Stomach, biopsy: - Mild chronic inactive gastritis, negative for Helicobacter pylori organisms (as evaluated by conventional H&E morphology). - No evidence of glandular atrophy, intestinal metaplasia, dysplasia or invasive malignancy. C. Mid esophagus, biopsy: - Normal squamous esophageal mucosa. D. Distal esophagus, biopsy: - Normal squamous esophageal mucosa with mild reactive epithelial atypia and fungal organisms consistent with Quirino subspecies (as evaluated by GMS staining). 5 11:22 AM T [facility] at 1122 CDT GROSS DESCRIPTION The specimens are received in four containers each labeled Oseas Anthony. Received in the first container additionally labeled small intestine biopsy erythema are 4 soft bruce-white tissue fragments each measuring 0.2 cm in greatest dimension. Entirely submitted labeled A1. Received in the second container additionally labeled stomach biopsy are 2 soft bruce-brown tissue fragments ranging from 0.2 to 0.5 cm in greatest dimension. Entirely submitted labeled B1. Received in the third container additionally labeled midesophagus biopsy are 5 soft bruce-white tissue fragments ranging from 0.1 to 0.2 cm in greatest dimension. Entirely submitted labeled C1. Received in the fourth container additionally labeled distal esophagus biopsy are 4 soft bruce-white tissue fragments ranging from 0.2 to 0.3 cm in greatest dimension. Entirely submitted labeled D1. ARC 5 11:22 AM T [facility] MICROSCOPIC DESCRIPTION The slides are labeled [id number] and Oseas Anthony. Microscopic examination is performed and supports the above diagnoses. 5 11:22 AM T [facility] OPERATIVE PROCEDURE 1: ESOPHAGOGASTRODUODENOSCOP Y 5 11:22 AM [facility] CLINICAL INFORMATION Eosinophilic esophagitis [K20.0] K20.0-Eosinophilic esophagitis 5 11:22 AM T [facility] COMMENT Special stain, immunohistochemical, and/or in situ hybridization results are interpreted with controls that demonstrate appropriate staining reactions. Note on use of immunohistochemistry reagents and in situ hybridization probes: These tests were developed and their performance characteristics determined by [facility], Department of Laboratory Medicine. It has not been cleared or approved by the U.S. Food and Drug Administration. The FDA has determined that such clearance or approval is not necessary. The test is used for clinical purposes. It should not be regarded as investigational or for research. This laboratory is certified to perform high complexity testing. Frozen section/operating room consultation, gross examination and dissection, and case sign out may have been performed in part or completely in the following laboratories: [facility], CLIA #[id number] [address] [place] [address] [facility], CLIA #[id number] [address] [place] [address] [facility], CLIA #[id number] [address] [place] [address] This report was created with the [employer] voice-activated dictation system. Inherent to this system is the possibility of syntax, grammar, punctuation and other errors that could impact the interpretation of the report. If there are interpretative questions about aspects of this report, please contact the performing pathologist. 11:22 AM CDT [facility] Tissue (Small Intestine) Collection / Unknown 02/10/2025 10:28 AM CDT 02/11/2025 7:08 AM CDT Tissue specimen (specimen) ENTIRE STOMACH / Unknown 02/10/2025 10:30 AM CDT 02/11/2025 7:08 AM CDT Tissue specimen (specimen) (Esophagus, mid) 02/10/2025 10:41 AM CDT 02/11/2025 7:08 AM CDT Tissue specimen (specimen) (Esophagus, distal) 02/10/2025 10:46 AM CDT 02/11/2025 7:08 AM CDT Regino Garcia MD PATHOLOGY/CYTOLOGY OR DERABLES Final Result [facility] CLIA# [id number] [address] [facility] [place] [address] * (ABNORMAL) CALPROTECTIN, FECAL (01/15/2025 8:01 AM CDT) Stool STOOL SPECIMEN / Unknown 01/15/2025 8:01 AM CDT Regino Garcia MD BODY FLUIDS AND STOOL S Final Result NON [facility] LAB * COLONOSCOPY REPORT (05/05/2024 12:38 PM CIGAR PACKER AND GRADER) Narrative Procedure Note Regino Garcia MD - 05/05/2024 12:38 PM CST [facility] Endoscopy Patient Name: Oseas Anthony Procedure Date: [...] signed electronically. Number of Addenda: 0 [address] [facility] [address] [facility] [address] Regino Garcia MD GI PROCEDURE ORDERABL ES Final Result from Last 3 Months or Most Recently Relevant to Health Maintenance Insurance [employer] [facility] [employer] [id number] Advance Directives For more information, please contact: [phone] * Full Code (Latest Code Status on File) Date Activated Date Inactivated Comments 02/10/2025 9:31 AM 02/10/2025 1:12 PM * Full Code Date Activated Date Inactivated Comments 06/09/2024 10:34 AM 06/09/2024 2:26 PM * Full Code Date Activated Date Inactivated Comments 05/05/2024 11:07 AM 05/05/2024 3:03 PM Care Teams Clay Pigeon Setter Relationship Specialty Start Date End Date Elijah Humphrey MD [address] [place] [phone] PCP - General Family Practice 03/12/24
--- OUTSIDE RECORDS SUMMARY | 2025-03-17 15:25 | XMS_ITS | Encounter Summary ---
Author Organization [facility] Address [address] [place] [address] Phone Care Team Providers Care Bowl Turner Name Role Phone Phan Gilmore MD Primary Care Provider [phone] Elijah Humphrey MD Primary Care Provider Karan Quezada MD Unavailable Mariajose Gandhi MD Unavailable [phone] Jose Cantrell MD Unavailable [phone] Reason for Visit * Reason Comments Medication Refill Encounter Details Date Type Department Care Team (Late st Contact Info) Description 10/04/2020 Refill [facility] - Internal Medicine - [place] [address] [place] [address] Phan Gilmore MD [address] [place] [address] Medication Refill Social History Tobacco Use Types [...] C. difficile Rule-Out 05/31/2021 05/31/20212020 12:16 AM [employer]GAR CO[employer] HAND C. difficile Rule-Out 12/08/2021 12/09/20212021 12:16 AM CDT documented as of this encounter Care Teams Bowl Turner Relationship Specialty Start Date End Date Phan Gilmore MD PCP - General Internal Medicine 09/07/19 05/30/21 Elijah Humphrey MD PCP - General Family Medicine 05/31/21 Karan Quezada MD [address] [address] Consulting Physician Colon and Rectal Surgery 11/01/21 Mariajose Gandhi MD [address] [place] [address] Consulting Physician Gastroenterology 04/13/22 Jose Cantrell MD [address] [place] [id number] Consulting Physician Neurology 05/20/24 documented as of this encounter
[2025-03-20 00:07] LABS: Calprotectin, Fecal 304 ug/g (0-120)
== END 2025-03-17 13:44 | disposition home or self-care (01) ==
LOC: ANHBWCLAB 13:44
PROVIDERS: PCP Family Medicine; Visit Provider Family Medicine
DX: R79.89 Other specified abnormal findings of blood chemistry (principal); R74.8 Abnormal levels of other serum enzymes; K50.90 Crohn's disease, unspecified, without complications; D64.9 Anemia, unspecified; M05.20 Rheumatoid vasculitis with rheumatoid arthritis of unspecified site; G43.909 Migraine, unspecified, not intractable, without status migrainosus; R53.83 Other fatigue
CPT/HCPCS: 83993

== ENCOUNTER 2025-03-18 08:24 | Outpatient (CLI) | payer OTHER, SELFPAY ==
--- NOTE | 2025-03-18 | CONSULT_PTH ---
PATIENT: Oseas Ramirez LOC: [facility] U#:[id number] AGE/SX: 59/M ROOM: RE03/18/[address]: Elijah Humphrey MD : 1965 BED: DIS: 03/18/2025 SPEC #: [id number] RECD: 03/18/25 19:16 STATUS: CARMEL REQ #: [id number] CHARLEE: 03/18/25 00:[address]: Elijah Humphrey DEPT: [facility] Consult RECD BY: Ana Cristina Burk MLT Tissues: A - Peripheral Smear Procedures: Hematology Consult
--- OUTSIDE RECORDS SUMMARY | 2025-03-18 08:58 | XMS_ITS | Encounter Summary ---
Author Organization [facility] Address [address] [place] [address] Phone Care Team Providers Care Colon Therapist Name Role Phone Elijah Humphrey MD Primary Care Provider [phone] Karan Quezada MD Unavailable Mariajose Gandhi MD Unavailable [phone] Jose Cantrell MD Unavailable [phone] Encounter Details Date Type Department Care Team (Latest Contact Info) Description 06/03/2024 Transcribe Orders [facility] [address] [place] [address] Regino Garcia MD [address] [facility] [address] [place] [address] Collagenous colitis (Primary Dx) Social History [...] * (ABNORMAL) CALPROTECTIN, FECES (06/03/2024 1:54 PM PANTOGRAPH WATCHER) CALPROTECTIN, FECES 79.3(H) <=49.0 mcg/g 06/04/2024 2:24 PM PANTOGRAPH WATCHER [facility] Comment: <50 mcg/g Normal 50-120 mcg/g Borderline >120 mcg/g Abnormal Stool Non-Phlebotomy Collection / Unknown 06/03/2024 1:54 PM PANTOGRAPH WATCHER 06/03/2024 1:57 PM PANTOGRAPH WATCHER us Regino Garcia MD IMMUNOLOGY ORDERABLES Final Result [facility] [address] [place] [address], documented in this encounter Visit Diagnoses Diagnosis Collagenous colitis- Primary Other and unspecified noninfectious gastroenteritis and colitis documented in this encounter Additional Health Concerns Assessment Noted Time PHQ-9 Depression Total Score: 0 10/09/19 21 10:00 AM CDT documented as of this encounter Care Teams Colon Therapist Relationship Specialty Start Date End Date Elijah Humphrey MD PCP - General Family Medicine 05/31/21 Karan Quezada MD #[address] [address] Consulting Physician Colon and Rectal Surgery 11/01/21 Mariajose Gandhi MD [address] [place] [address] Consulting Physician Gastroenterology 04/13/22 Jose Cantrell MD [address] [place] [address] Consulting Physician Neurology 05/20/24 documented as of this encounter
--- OUTSIDE RECORDS SUMMARY | 2025-03-18 08:58 | XMS_ITS | Clinical Summary ---
Author Organization [facility] Address [address] [place] [address] Phone Care Team Providers Care Board Lining Machine Operator Name Role Phone Elijah Humphrey MD Primary Care Provider [phone] Allergies Active Allergy Reactions Criticality Noted Date [...] Type Department Care Team Description 5 Refill [facility] [place] [address] [place] [address] Regino Garcia MD 5 Results Follow-Up [facility] [place] [address] [place] [address] Regino Garcia MD PATHOLOGY 5 External Device Data STL ABSTRACTION Provider, Abstract 5 10:20 AM CDT - 5 11:00 AM CDT Surgery [facility] [address] [place] [address] Regino Garcia MD checkout ESOPHAGOGASTRODUODENOSCOPY 5 10:18 AM CDT Anesthesia Event [facility] [address] [place] [address] Omkar Maurice MD 5 8:43 AM CDT - 5 11:11 AM CDT Hospital Encounter [facility] [address] [place] [address] Regino Garcia MD Eosinophilic esophagitis Discharge Disposition: Home or Self Care 5 Telephone [facility] [place] [address] [place] [address] Regino Garcia MD Results 5 Orders Only [facility] [address] [place] [address] WinShannan Collagenous colitis 5 External Device Data STL ABSTRACTION Provider, Abstract 5 3:20 PM CDT Office Visit [facility] [address] [place] [address] Regino Garcia MD Collagenous colitis (Primary Dx); Eosinophilic esophagitis 5 Orders Only [facility] [place] [address] [facility] [address] [place] [address] Regino Garcia MD 5 External Device Data STL ABSTRACTION Provider, Abstract from Last 3 Months Family History Medical [...] st Contact Info) Description 06/30/2025 2:20 PM DAIRY AND FOOD LABORATORY ASSISTANT Office Visit [facility] [place] [address] [facility] [address] [place] [address] Regino Garcia MD [address] [facility] [address] [place] [address] Health Maintenance Due Date Last [...] Pathology 02/10/2025 10:28 AM CDT Eosinophilic esophagitis MT ESOPHAGOGASTRODUODENOSCOP Y TRANSORAL DIAGNOSTIC 02/10/2025 10:20 AM CDT Eosinophilic esophagitis CALPROTECTIN, FECAL Routine 01/15/2025 8:01 AM CDT Collagenous colitis COLONOSCOPY REPORT 05/05/2024 12:38 PM DAIRY AND FOOD LABORATORY ASSISTANT from Last 3 Months or Most Recently Relevant to Health Maintenance Results * UPPER ENDOSCOPY REPORT (02/10/2025 10:47 AM CDT) Narrative Procedure Note Regino Garcia MD - 02/10/2025 10:47 AM CDT [facility] Patient Name: Oseas Ramirez Procedure Date: 02/10/2025 Date of : 1965 [...] signed electronically. Number of Addenda: 0 [phone] [facility] [address] [facility] [address] Regino Garcia MD GI PROCEDURE ORDERABL ES Final Result * PATHOLOGY (02/10/2025 10:28 AM CDT) CASE REPORT Surgical Pathology [place] Case: [id number] Authorizing Provider: Regino Garcia, Collected: 02/10/2025 10:28 AM Ordering Location: [facility] Received: 02/11/2025 07:08 AM [facility] Pathologist: Marilee Rae MD Specimens: A) - Small Intestine, bx erythema B) - Stomach, bx rule out hpylori C) - Esophagus, mid, bx rule out barretts; quirino D) - Esophagus, distal, bx rule out barretts; quirino 11:22 AM CDT [facility] FINAL DIAGNOSIS [...] Quirino subspecies (as evaluated by GMS staining). 08/15/202 5 11:22 AM T [facility] at 1122 CDT GROSS DESCRIPTION The specimens are received in four containers each labeled Oseas Ramirez. Received in the first container additionally labeled [...] labeled D1. ARC 5 11:22 AM T [facility] MICROSCOPIC DESCRIPTION The slides are labeled [id number] and Oseas Ramirez. Microscopic examination is performed and supports the above diagnoses. 5 11:22 AM T [facility] OPERATIVE PROCEDURE 1: ESOPHAGOGASTRODUODENOSCOP Y 5 11:22 AM T [facility] CLINICAL INFORMATION Eosinophilic esophagitis [K20.0] K20.0-Eosinophilic esophagitis 5 11:22 AM T [facility] COMMENT Special stain, immunohistochemical, and/or in situ hybridization results are interpreted with controls that demonstrate appropriate staining reactions. Note on use of immunohistochemistry reagents and in situ hybridization probes: These tests were developed and their performance characteristics determined by [facility], Department of Laboratory Medicine. It has not [...] part or completely in the following laboratories: [id number] [address] [place] [address] [facility], [place] #[id number] [address] [place] [address] [facility], CLIA #[id number] [address] [facility] [place] [address] This report was created with the [employer] voice-activated dictation system. Inherent to this system is the possibility of syntax, grammar, punctuation and other errors that could impact the interpretation of the report. If there are interpretative questions about aspects of this report, please contact the performing pathologist. 11:22 AM CDT [facility] Tissue (Small Intestine) Collection / Unknown 02/10/2025 10:28 AM CDT 02/11/2025 7:08 AM CDT Tissue specimen (specimen) ENTIRE STOMACH / Unknown 02/10/2025 10:30 AM CDT 02/11/2025 7:08 AM CDT Tissue specimen (specimen) (Esophagus, mid) 02/10/2025 10:41 AM CDT 02/11/2025 7:08 AM CDT Tissue specimen (specimen) (Esophagus, distal) 02/10/2025 10:46 AM CDT 02/11/2025 7:08 AM CDT us Regino Garcia MD PATHOLOGY/CYTOLOGY OR DERABLES Final Result [id number] [address] [place] [address] * (ABNORMAL) CALPROTECTIN, FECAL (01/15/2025 8:01 AM CDT) Stool STOOL SPECIMEN / Unknown 01/15/2025 8:01 AM CDT Regino Garcia MD BODY FLUIDS AND STOOL S Final Result NON [facility] * COLONOSCOPY REPORT (05/05/2024 12:38 PM DAIRY AND FOOD LABORATORY ASSISTANT) Narrative Procedure Note Regino Garcia MD - 05/05/2024 12:38 PM CST [facility] Patient Name: Oseas Ramirez Procedure Date: 05/05/2024 Date of : 1965 [...] signed electronically. Number of Addenda: 0 [address] [facility] [address] Regino Garcia MD GI PROCEDURE ORDERABL ES Final Result from Last 3 Months or Most Recently Relevant to Health Maintenance Insurance [facility] [id number] [facility] Address: [place] [address] Advance Directives For more information, please contact: [phone] * Full Code (Latest Code Status on File) Date Activated Date Inactivated Comments 02/10/2025 9:31 AM 02/10/2025 1:12 PM * Full Code Date Activated Date Inactivated Comments 06/09/2024 10:34 AM 06/09/2024 2:26 PM * Full Code Date Activated Date Inactivated Comments 05/05/2024 11:07 AM 05/05/2024 3:03 PM Care Teams Board Lining Machine Operator Relationship Specialty Start Date End Date Elijah Humphrey MD [address] [place] [address] PCP - General Family Practice 03/12/24
--- OUTSIDE RECORDS SUMMARY | 2025-03-18 08:58 | XMS_ITS | Encounter Summary ---
Author Organization [facility] Address [address] [place] [address] Phone Care Team Providers Care Business Quality Assurance Analyst Name Role Phone Phan Gilmore MD Primary Care Provider [phone] Elijah Humphrey MD Primary Care Provider Karan Quezada MD Unavailable Mariajose Gandhi MD Unavailable [phone] Jose Cantrell MD Unavailable [phone] Reason for Visit * Reason Comments Medication Refill Encounter Details Date Type Department Care Team (Late st Contact Info) Description 10/04/2020 Refill [facility] - Internal Medicine - [place] [address] [place] [address] Phan Gilmore MD [address] [place] [address] Medication Refill Social History Tobacco [...] C. difficile Rule-Out 05/31/2021 05/31/20212020 12:16 AM LEGAL CLERK C. difficile Rule-Out 12/08/2021 12/09/20212021 12:16 AM CDT documented as of this encounter Care Teams Business Quality Assurance Analyst Relationship Specialty Start Date End Date Phan Gilmore MD PCP - General Internal Medicine 09/07/19 05/30/21 Elijah Humphrey MD PCP - General Family Medicine 05/31/21 Karan Quezada MD [address] [address] Consulting Physician Colon and Rectal Surgery 11/01/21 Mariajose Gandhi MD [address] [place] [address] Consulting Physician Gastroenterology 04/13/22 Jose Cantrell MD [address] [place] [address] Consulting Physician Neurology 05/20/24 documented as of this encounter
--- OUTSIDE RECORDS SUMMARY | 2025-03-18 08:59 | XMS_ITS | Clinical Summary ---
Author Organization [facility] [place] Address [address] [place] [address] Phone Care Team Providers Care Music Minister Name Role Phone Elijah Humphrey MD Primary Care Provider [phone] Karan Quezada MD Unavailable Mariajose Gandhi MD Unavailable [phone] Jose Cantrell MD Unavailable [phone] Allergies Active Allergy Reactions Criticality Noted Date [...] Team Description 01/13/2025 Travel 01/07/2025 Transcribe Orders [facility] Services [address] [place] [address] Regino Garcia MD Collagenous colitis (Primary Dx) from Last 3 Months Immunizations Immunization Administration Dates Next Due Covid-19 Vaccine, Vector-nr, Rs-ad26, Pf, 0.5 Ml ([employer]) 09/03/2020 DT Vaccine 04/01/2013 Influenza Vaccine greater [...] Comments Blood Pressure 120/70 08/14/2024 2:22 PM PAINT STRIPING MACHINE OPERATOR Pulse 101 08/14/2024 2:22 PM PAINT STRIPING MACHINE OPERATOR Temperature 36.6 C (97.8 F) 08/14/2024 2:22 PM PAINT STRIPING MACHINE OPERATOR Respiratory Rate 16 08/14/2024 2:22 PM PAINT STRIPING MACHINE OPERATOR Oxygen Saturation 100% 08/14/2024 2:22 PM PAINT STRIPING MACHINE OPERATOR Inhaled Oxygen Concentration - - Weight 55.1 kg (121 lb 8 oz) 08/14/2024 2:22 PM PAINT STRIPING MACHINE OPERATOR Height 175.3 cm (5' 9) 08/14/2024 2:22 PM PAINT STRIPING MACHINE OPERATOR Body Mass Index 17.94 08/14/2024 2:22 PM PAINT STRIPING MACHINE OPERATOR Plan of Treatment Health Maintenance Due Date [...] colitis PSA SCREEN Routine 06/12/2023 11:59 AM PAINT STRIPING MACHINE OPERATOR Crohn's disease with complication, unspecified gastrointestinal tract location (HCC) Pain in thoracic spine Cervicalgia Shortness of breath Post-COVID syndrome Cachexia (HCC) HEPATITIS C ANTIBODY Routine 07/21/2022 2:31 PM PAINT STRIPING MACHINE OPERATOR Crohn's disease without complication, unspecified gastrointestinal tract [...] Regino Garcia MD IMMUNOLOGY ORDERABLES Final Result [facility] [address] [place] [address], [place] * PSA SCREEN (06/12/2023 11:59 AM PAINT STRIPING MACHINE OPERATOR) PSA SCREEN, TOTAL 0.31 <4.00 ng/mL 06/12/2023 12:46 PM PAINT STRIPING MACHINE OPERATOR [facility] Blood Venipuncture / Unknown 06/12/2023 11:59 AM PAINT STRIPING MACHINE OPERATOR 06/12/2023 12:06 PM PAINT STRIPING MACHINE OPERATOR Narrative [facility] - 06/12/2023 12:46 PM PAINT STRIPING MACHINE OPERATOR The [employer]ITY Total PSA assay is a Chemiluminescent Microparticle Immunoassay (CMIA) for the quantitative determination of total PSA (both free PSA and PSA complexed to [id number]) in human serum. Total PSA values obtained with different assay methods, including Duran PSA assays, cannot be used interchangeably. us Elijah Humphrey MD CHEMISTRY ORDERABLES Final Resu lt [facility] [address] [place] [address] * HEPATITIS C ANTIBODY (07/21/2022 2:31 PM PAINT STRIPING MACHINE OPERATOR) hepatitis C antibody 0.05 <1 S/CO [facility] ARCH [id number] 07/22/2022 12:37 AM PAINT STRIPING MACHINE OPERATOR [facility] Comment: Signal/Cutoff ratio < 0.79 is Nondetected Signal/Cutoff ratio 0.80-0.99 is Grayzone Signal/Cutoff ratio > 0.99 is Detected Supplemental assays are recommended if signal/cutoff ratio is >/=1.00. Signal/cutoff ratio result >/= 5.00 is 97% predictive of positivity for recombinant immunoblot assay (RIBA) and will be reported to the [place] Department of Public Health as required. Blood Venipuncture / Unknown 07/21/2022 2:31 PM PAINT STRIPING MACHINE OPERATOR 07/21/2022 3:32 PM PAINT STRIPING MACHINE OPERATOR us Mariajose Gandhi MD CHEMISTRY ORDERABLES Final Resu lt [facility] [address] [place] [address], [place] from Last 3 Months or Most Recently Relevant to Health Maintenance Insurance [facility] Advance Directives * Full Code (Latest Code Status on File) Date Activated Date Inactivated Comments 05/31/2021 10:17 PM 06/02/2021 2:14 PM CPR-Full T reatment: FULL ARREST: Attempt Resuscitation/CPR wit intubation and mechanical ventilation. PRE-ARREST: Use entire range of life support measures to stabilize the patient. Care Teams Music Minister Relationship Specialty Start Date End Date Elijah Humphrey MD PCP - General Family Medicine 05/31/21 Karan Quezada MD [address] [address] Consulting Physician Colon and Rectal Surgery 11/01/21 Mariajose Gandhi MD [address] [place] [address] Consulting Physician Gastroenterology 04/13/22 Jose Cantrell MD [address] [place] [address] Consulting Physician Neurology 05/20/24
--- OUTSIDE RECORDS SUMMARY | 2025-03-18 08:59 | XMS_ITS | Encounter Summary ---
Author Organization [facility] Address [address] [place] [address] Care Team Providers Care Ob Gyn Name Role Phone Elijah Humphrey MD Primary Care Provider [phone] Encounter Details Date Type Department Care Team (Late Contact Info) Description 02/18/2025 Results Follow-Up [facility] G[facility]enterology [place] [address] [facility] [address] [place] [address] Regino Garcia MD [address] [address] PATHOLOGY Social History Tobacco Use [...] (Late Contact Info) Description 06/30/2025 2:20 PM FIELD CREW CHIEF Office Visit [facility] [place] [address] [facility] [address] [place] [address] Regino Garcia MD [address] [facility] [address] [place] [address] documented as of this encounter Visit Diagnoses Not on filedocumented in this encounter Care Teams Ob Gyn Relationship Specialty Start Date End Date Elijah Humphrey MD [address] [place] [address] PCP - General Family Practice 03/12/24 documented as of this encounter
--- OUTSIDE RECORDS SUMMARY | 2025-03-18 08:59 | XMS_ITS | Encounter Summary ---
Author Organization [facility] Address [address] [place] [address] Phone Care Team Providers Care Nuisance Wildlife Control Operator Name Role Phone Elijah Humphrey MD Primary Care Provider [phone] Karan Quezada MD Unavailable Mariajose Gandhi MD Unavailable [phone] Jose Cantrell MD Unavailable [phone] Encounter Details Date Type Department Care Team (Latest Contact Info) Description 01/07/2025 Transcribe Orders [facility] [address] [place] [address] Regino Garcia MD [address] [facility] [address] [place] [address] Collagenous colitis (Primary Dx) Social History [...] 222.0(H) <=49.0 mcg/g 01/14/2025 2:01 PM CDT [facility] Comment: <50 mcg/g Normal 50-120 mcg/g Borderline >120 mcg/g Abnormal Stool Non-Phlebotomy Collection / Unknown 01/13/2025 10:18 AM CDT 01/13/2025 12:11 PM CDT us Regino Garcia MD IMMUNOLOGY ORDERABLES Final Result [facility] [address] [place] [address], documented in this encounter Visit Diagnoses Diagnosis Collagenous colitis- Primary Other and unspecified noninfectious gastroenteritis and colitis documented in this encounter Additional Health Concerns Assessment Noted Time PHQ-9 Depression Total Score: 0 10/09/19 21 10:00 AM CDT documented as of this encounter Care Teams Nuisance Wildlife Control Operator Relationship Specialty Start Date End Date Elijah Humphrey MD PCP - General Family Medicine 05/31/21 Karan Quezada MD [address] [address] Consulting Physician Colon and Rectal Surgery 11/01/21 Mariajose Gandhi MD [address] [place] [address] Consulting Physician Gastroenterology 04/13/22 Jose Cantrell MD [address] [place] [address] Consulting Physician Neurology 05/20/24 documented as of this encounter
[2025-03-18 18:24] LABS: Hematocrit 42.2 % (42.0-52.0); Hemoglobin 13.1 g/dL (14.0-18.0); Mean Corpuscular HGB Conc 31.0 g/dl (32-36); Mean Corpuscular Hemoglobin 29.6 pg (26-34); Mean Corpuscular Volume 95.3 fl (80-100); Platelet Count Result 483 k/mm3 (150-375); Red Blood Count 4.43 M/mm3 (4.6-6.20); White Blood Count 8.6 K/mm3 (4.5-10.0)
[2025-03-18 18:46] LABS: Alanine Aminotransferase 19 U/L (6-50); Albumin Level 4.0 g/dL (3.5-5.1); Alkaline Phosphatase 62 U/L (38-126); Anion Gap 7 mmol/L (4-12); Aspartate Amino Transferase 75 U/L (17-59); Bilirubin,Total 0.3 mg/dL (0.2-1.3); Blood Urea Nitrogen 4 mg/dL (9-20); Calcium 9.3 mg/dL (8.4-10.2); Carbon Dioxide 26 mmol/L (22-30); Chloride 101 mmol/L (98-107); Estimated Glomerular Filt Rate > 60; Glucose 85 mg/dL (65-110); Magnesium 2.0 mg/dL (1.6-2.3); Potassium 4.4 mmol/L (3.4-5.0); Sodium 134 mmol/L (137-145); Total Protein 6.8 g/dL (6.3-8.2)
[2025-03-18 19:10] LABS: Band Neutrophils Percent 4 % (0-6); Lymphocytes Absolute Manual 2.75 K/mm3 (1.1-4.5); Lymphocytes Percent Manual 32 % (18-44); Monocytes Absolute Manual 1.11 K/mm3 (0.1-0.90); Monocytes Percent Manual 13 % (3-9); Neutrophils Absolute Manual 2.49 K/mm3 (1.3-6.7); Neutrophils Percent Manual 25 % (46-73); Total Cells Counted 100
[2025-03-18 19:11] LABS: Basophils Absolute Manual 0.17 K/mm3 (0.0-0.1); Basophils Percent Manual 2 % (0-1); Eosinophils Absolute Manual 2.06 K/mm3 (0.02-0.50); Eosinophils Percent Manual 24 % (0-4)
[2025-03-18 19:13] LABS: Schistocytes None Seen
[2025-03-18 19:30] LABS: Vitamin B12 790.0 pg/mL (239-931)
== END 2025-03-18 08:25 | disposition home or self-care (01) ==
LOC: ANHBWCLAB 08:25
PROVIDERS: PCP Family Medicine; Visit Provider Family Medicine
DX: R79.89 Other specified abnormal findings of blood chemistry (principal); R74.8 Abnormal levels of other serum enzymes; K50.90 Crohn's disease, unspecified, without complications; D64.9 Anemia, unspecified; M05.20 Rheumatoid vasculitis with rheumatoid arthritis of unspecified site; G43.909 Migraine, unspecified, not intractable, without status migrainosus; R53.83 Other fatigue
CPT/HCPCS: 36415; 80053; 82306; 82607; 83735; 85025